=== PATIENT | female | born 1985 | race African-American/Black ===

== ENCOUNTER 2016-07-25 22:31 | Emergency (ER) | payer OTHER ==
[~2016-07-25] VITALS: Ht 170.2 cm; Wt 96.2 kg
[~2016-07-25 22:31] MED LIST: ATOR20TA PO; DAPA10TA PO; METF500T25 PO; OXYC-244 PO
[2016-07-25 22:55] LABS: BILIRUBIN,URINE NEGATIVE (NEG); GLUCOSE,URINE >=1000 mg/dL (NEG); NITRITE,URINE NEGATIVE (NEG); PROTEIN,URINE >=300 mg/dL (NEG-TRACE)
[2016-07-25] MEDS ORDERED: ACETAMINOPHEN 500 MG TABLET PO ONE (23:00)
--- NOTE | 2016-07-25 23:06 | PHYS DOC ---
Past Medical History Past Medical History: Anxiety, Depression, Diabetes-Type II Past Surgical History: Other Additional Past Surgical Histo: [place] teeth; . Alcohol Use: None Drug Use: None Adult General Chief Complaint Chief Complaint: ABDOMINAL PAIN IN HPI HPI This is a pleasant 30-year-old female who is 3 at approximately 9 weeks by her last menstrual period who is having persisting right upper quadrant pain for the last 4 days. She denies any significant nausea or vomiting. She states she ate Chipotle earlier today without any problem. She does not appear to be in any acute distress. She is afebrile and nontoxic in appearance. Her only abdominal surgery has been a as well as a right groin abscess from that . Her pain does not feel related whatsoever to her previous groin abscess. She states her bowel movement have been normal. She denies any dysuria or hematuria. She has not taken anything for her symptoms. She denies any vaginal bleeding. Her first was a miscarriage in the first trimester and her second was a full-term delivery. She denies any drugs or alcohol use. Patient does have history of diabetes and is on metformin therapy for this. Review of Systems Review of Systems Constitutional: Denies fever or chills [] Eyes: Denies change in visual acuity, redness, or eye pain [] HENT: Denies nasal congestion or sore throat [] Respiratory: Denies cough or shortness of breath [] Cardiovascular: No additional information not addressed in HPI [] GI: Has abdominal pain, denies nausea, denies vomiting, denies bloody stools or diarrhea [] : Denies dysuria or hematuria [] Musculoskeletal: Denies back pain or joint pain [] Integument: Denies rash or skin lesions [] Neurologic: Denies headache, focal weakness or sensory changes [] Endocrine: Denies polyuria or polydipsia [] Current Medications Current Medications Current Medications Medications (Trade) Dose Ordered Sig/Riddhi Start Time Stop Time Status Last Admin Dose Admin Acetaminophen (Tylenol) 1,000 mg 1X ONCE 07/25/16 23:00 07/25/16 23:01 DC 07/25/16 23:15 1,000 MG Allergies Allergies Allergies Coded Allergies Type Severity Reaction Last Updated Verified No Known Drug Allergies 05/09/15 No Physical Exam Physical Exam Constitutional: Well developed, well nourished, no acute distress, non-toxic appearance. [] HENT: Normocephalic, atraumatic, bilateral external ears normal, oropharynx moist, no oral exudates, nose normal. [] Eyes: PERRLA, EOMI, conjunctiva normal, no discharge. [] Neck: Normal range of motion, no tenderness, supple, no stridor. [] Cardiovascular:Heart rate regular rhythm, no murmur [] Lungs & Thorax: Bilateral breath sounds clear to auscultation [] Abdomen: Bowel sounds normal, soft, RUQ tenderness, no masses, no pulsatile masses. [] Skin: Warm, dry, no erythema, no rash. [] Back: No tenderness, no CVA tenderness. [] Extremities: No tenderness, no cyanosis, no clubbing, ROM intact, no edema. [] Neurologic: Alert and oriented X 3, normal motor function, normal sensory function, no focal deficits noted. [] Psychologic: Affect normal, judgement normal, mood normal. [] Current Patient Data Vital Signs Vital Signs Date Time Temp Pulse Resp B/P (MAP) Pulse Ox O2 Delivery O2 Flow Rate FiO2 07/25/16 22:49 98.2 88 16 163/85 (111) 100 Room Air 98.2 Lab Values Laboratory Tests Test 07/25/16 21:52 07/25/16 22:42 07/25/16 23:05 POC Urine HCG, Qualitative Hcg positive (Negative) Urine Collection Type Unknown Urine Color Yellow Urine Clarity Cloudy Urine pH 6.0 Urine Specific [place] 1.025 Urine Protein >=300 mg/dL (NEG-TRACE) Urine Glucose (UA) >=1000 mg/dL (NEG) Urine Ketones (Stick) Negative mg/dL (NEG) Urine Blood Small (NEG) Urine Nitrite Negative (NEG) Urine Bilirubin Negative (NEG) Urine Urobilinogen Dipstick 1.0 mg/dL (0.2 mg/dL) Urine Leukocyte Esterase Small (NEG) Urine RBC 0 /HPF (0-2) Urine WBC 20-40 /HPF (0-4) Urine Squamous Epithelial Cells Mod /LPF Urine Bacteria Moderate /HPF (0-FEW) Urine Mucus /LPF White Blood Count 12.4 x10^3/uL (4.0-11.0) H Red Blood Count 4.02 x10^6/uL (3.50-5.40) Hemoglobin 10.9 g/dL (12.0-15.5) L Hematocrit 34.1 % (36.0-47.0) L Mean Corpuscular Volume 85 fL (79-100) Mean Corpuscular Hemoglobin 27 pg (25-35) Mean Corpuscular Hemoglobin Concent 32 g/dL (31-37) Red Cell Distribution Width 13.7 % (11.5-14.5) Platelet Count 230 x10^3/uL (140-400) Neutrophils (%) (Auto) 73 % (31-73) Lymphocytes (%) (Auto) 16 % (24-48) L Monocytes (%) (Auto) 7 % (0-9) Eosinophils (%) (Auto) 3 % (0-3) Basophils (%) (Auto) 1 % (0-3) Neutrophils # (Auto) 9.1 x10^3uL (1.8-7.7) H Lymphocytes # (Auto) 1.9 x10^3/uL (1.0-4.8) Monocytes # (Auto) 0.9 x10^3/uL (0.0-1.1) Eosinophils # (Auto) 0.4 x10^3/uL (0.0-0.7) Basophils # (Auto) 0.1 x10^3/uL (0.0-0.2) Maternal Serum HCG Beta Subunit 41134 mIU/mL (0-6) H Sodium Level 135 mmol/L (136-145) L Potassium Level 3.8 mmol/L (3.5-5.1) Chloride Level 102 mmol/L (98-107) Carbon Dioxide Level 26 mmol/L (21-32) Anion Gap 7 (6-14) Blood Urea Nitrogen 17 mg/dL (7-20) Creatinine 1.3 mg/dL (0.6-1.0) H Estimated GFR (Cockcroft-Gault) 57.8 Glucose Level 311 mg/dL (70-99) H Calcium Level 8.5 mg/dL (8.5-10.1) Total Bilirubin 0.6 mg/dL (0.2-1.0) Direct Bilirubin 0.2 mg/dL (0.0-0.2) Aspartate Amino Transferase (AST) 10 U/L (15-37) L Alanine Aminotransferase (ALT) 12 U/L (14-59) L Alkaline Phosphatase 73 U/L (46-116) Total Protein 6.5 g/dL (6.4-8.2) Albumin 2.7 g/dL (3.4-5.0) L Lipase 201 U/L (73-393) Laboratory Tests 07/25/16 23:05 Laboratory Tests 07/25/16 23:05 EKG EKG [] Radiology/Procedures Radiology/Procedures PROCEDURE Obstetric ultrasound 1st trimester HISTORY female abdominal pain TECHNIQUE Transabdominal and transvaginal transducers with grayscale, M-mode Doppler and duplex Doppler sonography. COMPARISON No prior FINDINGS Transabdominal imaging demonstrates poor visualization of the uterus and adnexa. Transvaginal imaging demonstrates subcentimeter cervical nabothian cysts, no funneling or shortening of the cervix evident while no measurement was provided by the electrical project engineer of the cervical length it appears to have a length of at least 3.8 centimeters. Uterine fundal gestational with a single fetus with crown-rump length 1.93 centimeters estimating gestational age of 8 weeks 3 days date of delivery of March 03, 2017. heart rate 169 beats per minute. No subchorionic hemorrhage. Yolk sac diameter 3.4 millimeters. Right ovary measures 2.4 x 3.3 x 2.4 centimeters with a 2.2 centimeter corpus luteum. Left ovary measures 1.2 x 2.0 x 1.4 centimeters with 2 sub centimeter follicles. There is intact bilateral ovarian blood flow. No pelvic fluid. IMPRESSION Single living intrauterine estimated sonographic gestational age of 8 weeks 3 days as described above. Electronically signed by: Dago Paul MD (July 26, 2016 00:36:41) HISTORY Right upper quadrant abdominal pain TECHNIQUE Grayscale and color Doppler sonography were utilized COMPARISON No prior FINDINGS Pancreas head and body and proximal tail, proximal IVC and proximal abdominal aorta are unremarkable. Normal liver echogenicity. No liver mass documented. Normal direction of blood flow of the portal vein. No gallstones, gallbladder wall thickening, pericholecystic fluid or sonographic Monahan sign. No biliary ductal dilation the common bile duct has a diameter of 4 millimeters. Right renal length 12.6 centimeters, no evidence of right renal mass or hydronephrosis, the right renal lower pole is poorly visualized due to shadowing. Spleen and left kidney were not evaluated. IMPRESSION Course & Med Decision Making Course & Med Decision Making Pertinent Labs and Imaging studies reviewed. (See chart for details) This 30-year-old female who's having significant right-sided abdominal pain and will have laboratory workup and a urinalysis as well as a gallbladder ultrasound and a transvaginal ultrasound for her . At this time her laboratory workup is fairly unremarkable. Her urine sample appears to be contaminated and she is having no dysuria type symptoms. She has a slightly elevated white count which can be seen in early . Her symptoms have persisted for 4 days and I deem her to be low likelihood for appendicitis. Her ultrasound images are pending at this time. A dose of Tylenol has been given for her pain. Ultrasound images were negative for any acute abnormality. She has a viable IUP at approximately 8 weeks 3 days. She'll be discharged home with close follow-up with her OB doctor for any persisting pain or worsening symptoms. Return precautions within the next 24 hours were provided for her pain if it should worsen. She is very agreeable with this plan and will be discharged without incident. Dragon Disclaimer Dragon Disclaimer This electronic medical record was generated, in whole or in part, using a voice recognition dictation system. Departure Departure Impression: Primary Impression: Abdominal pain affecting Disposition: 01 HOME, SELF-CARE Admitting Physician: Other Condition: STABLE Referrals: [facility] (PCP) Patient Instructions: Abdominal Pain During Additional Instructions: Please take tylenol as needed for your abdominal pain and follow up closely with your OB doctor in the next 2-3 days for your abdominal pain. Return to the ER immediately if your pain should worsen in any way or you develop any severe nausea, vomiting, or fever. TAN ABEL DO July 25, 2016 23:06
[2016-07-25 23:14] LABS: RBC,URINE 0 /HPF (0-2)
[2016-07-25 23:15] LABS: BASO # 0.1 x10^3/uL (0.0-0.2); BASO % 1 % (0-3); EOS % 3 % (0-3); HEMATOCRIT 34.1 % (36.0-47.0); HEMOGLOBIN 10.9 g/dL (12.0-15.5); LYMPH # 1.9 x10^3/uL (1.0-4.8); LYMPH % 16 % (24-48); MEAN CORPUSCULAR HEMOGLOBIN 27 pg (25-35); MEAN CORPUSCULAR HGB CONC 32 g/dL (31-37); MEAN CORPUSCULAR VOLUME 85 fL (79-100); MONO % 7 % (0-9); NEUT % 73 % (31-73); PLATELET COUNT 230 x10^3/uL (140-400); RED BLOOD COUNT 4.02 x10^6/uL (3.50-5.40); RED CELL DISTRIBUTION WIDTH 13.7 % (11.5-14.5); WHITE BLOOD COUNT 12.4 x10^3/uL (4.0-11.0)
[2016-07-25 23:16] LABS: BACTERIA,URINE MODERATE /HPF (0-FEW); SQUAMOUS EPITHELIAL CELL,UR MOD /LPF; WBC,URINE 20-40 /HPF (0-4)
[2016-07-25 23:29] LABS: CALCIUM 8.5 mg/dL (8.5-10.1); CREATININE 1.3 mg/dL (0.6-1.0); GFR 57.8; POTASSIUM 3.8 mmol/L (3.5-5.1)
[2016-07-26 00:12] LABS: ALBUMIN 2.7 g/dL (3.4-5.0); DIRECT BILIRUBIN 0.2 mg/dL (0.0-0.2); TOTAL BILIRUBIN 0.6 mg/dL (0.2-1.0); TOTAL PROTEIN 6.5 g/dL (6.4-8.2)
--- NOTE | 2016-07-26 00:38 | RAD ---
PROCEDURE Obstetric ultrasound 1st trimester HISTORY female abdominal pain TECHNIQUE Transabdominal and transvaginal transducers with grayscale, M-mode Doppler and duplex Doppler sonography. COMPARISON No prior FINDINGS Transabdominal imaging demonstrates poor visualization of the uterus and adnexa. Transvaginal imaging demonstrates subcentimeter cervical nabothian cysts, no funneling or shortening of the cervix evident while no measurement was provided by the autocad of the cervical length it appears to have a length of at least 3.8 centimeters. Uterine fundal gestational with a single fetus with crown-rump length 1.93 centimeters estimating gestational age of 8 weeks 3 days date of delivery of March 03, 2017. heart rate 169 beats per minute. No subchorionic hemorrhage. Yolk sac diameter 3.4 millimeters. Right ovary measures 2.4 x 3.3 x 2.4 centimeters with a 2.2 centimeter corpus luteum. Left ovary measures 1.2 x 2.0 x 1.4 centimeters with 2 sub centimeter follicles. There is intact bilateral ovarian blood flow. No pelvic fluid. IMPRESSION Single living intrauterine estimated sonographic gestational age of 8 weeks 3 days as described above. Electronically signed by: Dago Paul MD (July 26, 2016 00:36:41)
--- NOTE | 2016-07-26 00:39 | RAD ---
PROCEDURE Limited abdomen ultrasound HISTORY Right upper quadrant abdominal pain TECHNIQUE Grayscale and color Doppler sonography were utilized COMPARISON No prior FINDINGS Pancreas head and body and proximal tail, proximal IVC and proximal abdominal aorta are unremarkable. Normal liver echogenicity. No liver mass documented. Normal direction of blood flow of the portal vein. No gallstones, gallbladder wall thickening, pericholecystic fluid or sonographic Monahan sign. No biliary ductal dilation the common bile duct has a diameter of 4 millimeters. Right renal length 12.6 centimeters, no evidence of right renal mass or hydronephrosis, the right renal lower pole is poorly visualized due to shadowing. Spleen and left kidney were not evaluated. IMPRESSION Normal exam. Electronically signed by: Dago Paul MD (July 26, 2016 00:38:13)
[2016-07-26 00:45] VITALS: BP 152/83
== END 2016-07-26 01:00 | disposition home or self-care (01) ==
LOC: ER 23:09
DX: O26.891 Other specified pregnancy related conditions, first trimester (principal); R10.11 Right upper quadrant pain; O99.341 Other mental disorders complicating pregnancy, first trimester; F41.9 Anxiety disorder, unspecified; F32.9 Major depressive disorder, single episode, unspecified; O24.911 Unspecified diabetes mellitus in pregnancy, first trimester; Z3A.08 8 weeks gestation of pregnancy; Z98.890 Other specified postprocedural states
CPT/HCPCS: 36415; 76705; 76817; 80048; 80076; 81001; 81025; 83690; 84702; 85027; 86900; 86901; 87086; 99285-25

== ENCOUNTER 2016-10-26 14:18 | Inpatient (IN) | payer OTHER ==
[~2016-10-26] VITALS: Ht 170.2 cm; Wt 105.9 kg
[~2016-10-26 14:18] MED LIST changes: -OXYC-244 PO; +OXYC-327 PO
[2016-10-26] MEDS ORDERED: IPRATRPIUM/ALBUTEROL 0.5/2.5MG 3 ML NEBU. NEB ONE (15:30)
--- NOTE | 2016-10-26 16:10 | PHYS DOC ---
Past Medical History Past Medical History: Anxiety, Asthma, Bronchitis, Depression, Diabetes-Type II , Hypertension, MRSA Past Surgical History: , Other Additional Past Surgical Histo: [place] teeth,LABIAL ABSCESS,MULTIPLE ABSCESSES Alcohol Use: None Drug Use: None Adult General Chief Complaint Chief Complaint: SHORTNESS OF BREATH HPI HPI Patient is a 31 year old -[place] female who presents with shortness of breath nausea vomiting and diarrhea. She states that 1:30 this morning her shortness of breath started and if she lay on her left side she did feel better. She states she's been coughing up clear thick sputum. She states both legs are swollen because of her . She does have a remote history of smoking but has stopped smoking again. She states she is approximately 22 weeks . She denies ever having a blood clot or PE in the past. She does have a history of high blood pressure and diabetes. Patient presently satting 88% on 2 L nasal cannula. She states she's had a history of bronchitis in the past. She states she's been having 4-8 episodes of nonbloody nonbilious vomiting in addition to numerous episodes of non-bloody loose stools. She denies any chest pain, abdominal pain, fevers or chills. Review of Systems Review of Systems Constitutional: Denies fever or chills [] Eyes: Denies change in visual acuity, redness, or eye pain [] HENT: Denies nasal congestion or sore throat [] Respiratory: Denies cough or shortness of breath [] Cardiovascular: No additional information not addressed in HPI [] GI: Denies abdominal pain, nausea, vomiting, bloody stools or diarrhea [] : Denies dysuria or hematuria [] Musculoskeletal: Denies back pain or joint pain [] Integument: Denies rash or skin lesions [] Neurologic: Denies headache, focal weakness or sensory changes [] Endocrine: Denies polyuria or polydipsia [] Current Medications Current Medications Current Medications Medications (Trade) Dose Ordered Sig/Riddhi Start Time Stop Time Status Last Admin Dose Admin Albuterol Sulfate (Ventolin Neb Soln) 2.5 mg 1X ONCE 10/26/16 16:30 10/26/16 16:31 DC 10/26/16 17:01 2.5 MG Albuterol/ Ipratropium (Duoneb) 3 ml 1X ONCE 10/26/16 15:30 10/26/16 15:31 DC 10/26/16 15:28 3 ML Azithromycin 250 ml @ 250 mls/hr 1X ONCE 10/26/16 18:00 10/26/16 18:59 Ceftriaxone Sodium 1 gm/ Sodium Chloride 50 ml @ 100 mls/hr Q24H 10/27/16 18:00 Ceftriaxone Sodium 50 ml @ 100 mls/hr 1X ONCE 10/26/16 18:15 10/26/16 18:44 DC 10/26/16 18:20 100 MLS/HR Allergies Allergies Allergies Coded Allergies Type Severity Reaction Last Updated Verified No Known Drug Allergies 05/09/15 No Physical Exam Physical Exam Constitutional: Well developed, well nourished, no acute distress, non-toxic appearance. [] HENT: Normocephalic, atraumatic, bilateral external ears normal, oropharynx moist, no oral exudates, nose normal. [] Eyes: PERRLA, EOMI, conjunctiva normal, no discharge. [] Neck: Normal range of motion, no tenderness, supple, no stridor. [] Cardiovascular:Heart rate regular rhythm, no murmur [] Lungs & Thorax: Bilateral breath sounds clear with decreased bases, no wheezing appreciated Abdomen: Bowel sounds normal, soft, no tenderness, no masses, no pulsatile masses. [] Skin: Warm, dry, no erythema, no rash. [] Back: No tenderness, no CVA tenderness. [] Extremities: No tenderness, no cyanosis, no clubbing, ROM intact, trace bilateral lower extremities edema Neurologic: Alert and oriented X 3, normal motor function, normal sensory function, no focal deficits noted. [] Psychologic: Affect normal, judgement normal, mood normal. [] Current Patient Data Vital Signs Vital Signs Date Time Temp Pulse Resp B/P (MAP) Pulse Ox O2 Delivery O2 Flow Rate FiO2 10/26/16 14:50 98.2 94 26 201/93 (129) 86 Room Air 98.2 Lab Values Laboratory Tests Test 10/26/16 16:00 White Blood Count 19.9 x10^3/uL (4.0-11.0) H Red Blood Count 3.70 x10^6/uL (3.50-5.40) Hemoglobin 10.3 g/dL (12.0-15.5) L Hematocrit 30.6 % (36.0-47.0) L Mean Corpuscular Volume 83 fL (79-100) Mean Corpuscular Hemoglobin 28 pg (25-35) Mean Corpuscular Hemoglobin Concent 34 g/dL (31-37) Red Cell Distribution Width 14.2 % (11.5-14.5) Platelet Count 255 x10^3/uL (140-400) Neutrophils (%) (Auto) 90 % (31-73) H Lymphocytes (%) (Auto) 6 % (24-48) L Monocytes (%) (Auto) 3 % (0-9) Eosinophils (%) (Auto) 1 % (0-3) Basophils (%) (Auto) 0 % (0-3) Neutrophils # (Auto) 17.9 x10^3uL (1.8-7.7) H Lymphocytes # (Auto) 1.1 x10^3/uL (1.0-4.8) Monocytes # (Auto) 0.7 x10^3/uL (0.0-1.1) Eosinophils # (Auto) 0.1 x10^3/uL (0.0-0.7) Basophils # (Auto) 0.1 x10^3/uL (0.0-0.2) Segmented Neutrophils % 76 % (35-66) H Band Neutrophils % 13 % (0-9) H Lymphocytes % 8 % (24-48) L Monocytes % 2 % (0-10) Metamyelocytes % 1 % (0-0) H Toxic Granulation Slight Platelet Estimate Adequate (ADEQUATE) Prothrombin Time 12.6 SEC (11.7-14.0) Prothrombin Time INR 1.0 (0.8-1.1) Urine Collection Type Void Urine Color Yellow Urine Clarity Clear Urine pH 6.0 Urine Specific [place] 1.025 Urine Protein >=300 mg/dL (NEG-TRACE) Urine Glucose (UA) 250 mg/dL (NEG) Urine Ketones (Stick) Trace mg/dL (NEG) Urine Blood Moderate (NEG) Urine Nitrite Negative (NEG) Urine Bilirubin Negative (NEG) Urine Urobilinogen Dipstick 1.0 mg/dL (0.2 mg/dL) Urine Leukocyte Esterase Trace (NEG) Urine RBC 1-2 /HPF (0-2) Urine WBC 5-10 /HPF (0-4) Urine Squamous Epithelial Cells Few /LPF Urine Bacteria Many /HPF (0-FEW) Urine Mucus Slight /LPF Sodium Level 137 mmol/L (136-145) Potassium Level 3.9 mmol/L (3.5-5.1) Chloride Level 103 mmol/L (98-107) Carbon Dioxide Level 22 mmol/L (21-32) Anion Gap 12 (6-14) Blood Urea Nitrogen 14 mg/dL (7-20) Creatinine 1.1 mg/dL (0.6-1.0) H Estimated GFR (Cockcroft-Gault) 69.6 Glucose Level 181 mg/dL (70-99) H Calcium Level 9.2 mg/dL (8.5-10.1) Magnesium Level 2.1 mg/dL (1.8-2.4) Total Bilirubin 0.5 mg/dL (0.2-1.0) Direct Bilirubin 0.1 mg/dL (0.0-0.2) Aspartate Amino Transferase (AST) 16 U/L (15-37) Alanine Aminotransferase (ALT) 17 U/L (14-59) Alkaline Phosphatase 95 U/L (46-116) Creatine Kinase 207 U/L (26-192) H Creatine Kinase MB (Mass) 6.8 ng/mL (0.0-3.6) H Creatine Kinase MB Relative Index 3.3 % (0-4) Troponin I Quantitative 0.085 ng/mL (0.000-0.055) SR-Ino-Z-Type Natriuretic Peptide 1673 pg/mL (0-124) H Total Protein 7.9 g/dL (6.4-8.2) Albumin 2.7 g/dL (3.4-5.0) L Urine Opiates Screen Neg (NEG) Urine Methadone Screen Neg (NEG) Urine Barbiturates Neg (NEG) Urine Phencyclidine Screen Neg (NEG) Urine Amphetamine/Methamphetamine Neg (NEG) Urine Benzodiazepines Screen Neg (NEG) Urine Cocaine Screen Neg (NEG) Urine Cannabinoids Screen Neg (NEG) Urine Ethyl Alcohol Neg (NEG) Laboratory Tests 10/26/16 16:00 Laboratory Tests 10/26/16 16:00 EKG EKG EKG shows sinus rhythm rate of [address] elevations or T-wave inversions, normal axis, QTC 434 ms, as interpreted by me. Radiology/Procedures Radiology/Procedures [facility] [address] [phone] IMAGING REPORT Signed PATIENT: GURPREET UMANA ACCOUNT: [id number] : 1985 LOCATION: ER AGE: 31 SEX: F EXAM STATUS: REG ER ORD. PHYSICIAN: JANNA MENDIOLA MD REASON: swelling PROCEDURE: VENOUS LOWER EXT BILATERAL Ultrasound venous Doppler Indication: Shortness of breath and swelling. Technique: Grayscale, color Doppler and spectral waveform ultrasound images of the bilateral lower extremities. Comparison: None Findings: The interrogated lower extremity veins are compressible and demonstrate normal blood flow with respiratory variation and response to augmentation. Impression: No sonographic evidence of acute DVT in the interrogated bilateral lower extremities veins. DICTATED and SIGNED BY: ALPHONSO MORRIS DO DATE: 10/26/16 1652 CC: JANNA MENDIOLA MD; [place] [address] IMAGING REPORT Signed PATIENT: GURPREET UMANA ACCOUNT: [id number] : 1985 LOCATION: ER AGE: 31 SEX: F EXAM STATUS: REG ER ORD. PHYSICIAN: JANNA MENDIOLA MD REASON: soa PROCEDURE: CHEST PA & LATERAL Chest x-ray Indication: Dyspnea Technique: PA and lateral views of the chest Comparison: None Findings: Heart is normal in size. Diffuse patchy opacities are seen in the right lung. 5 mm calcific density seen projecting over the right lower lung zone likely calcified granuloma. Left lung is clear. No pneumothorax or pleural effusion. Visualized bony thorax within normal limits. Impression: 1. Diffuse patchy opacities within the right lung concerning for infection. Clinically correlate. CT chest with IV contrast recommended for further evaluation if clinically indicated. 2. Small density projecting over the right lower lung zone likely calcified granuloma. DICTATED and SIGNED BY: ALPHONSO MORRIS DO DATE: 10/26/16 1450 CC: JANNA MENDIOLA MD; [facility] Impressions: Pneumonia Nausea vomiting diarrhea Elevated troponin Course & Med Decision Making Course & Med Decision Making Pertinent Labs and Imaging studies reviewed. (See chart for details) Patient has a right patchy infiltrate in her lung which is likely mycoplasma pneumonia based on her history of nausea vomiting and diarrhea. Bilateral lower extremity ultrasounds are negative for blood clot. She does not have a fever but she has a leukocytosis with bandemia. She has a slightly elevated troponin is likely secondary to her hypoxemia she is on 2 L satting around 90-92%. I spoke with OB regarding the case and will admit her to hospitalist. I start Rocephin and azithromycin for her symptoms. They both have the categories. She is agreeable to plan and is in stable condition this time. Will defer to the hospitalist if she feels is necessary for a CT angiogram to rule out PE. Dragon Disclaimer Dragon Disclaimer This electronic medical record was generated, in whole or in part, using a voice recognition dictation system. Departure Departure Impression: Primary Impression: Pneumonia Disposition: 09 ADMITTED INPATIENT Admitting Physician: Adri Oswald Condition: STABLE Referrals: [facility] (PCP) Problem Qualifiers Primary Impression: Pneumonia Pneumonia type: due to unspecified organism Laterality: right Lung location : lower lobe of lung Qualified Codes: J18.1 - Lobar pneumonia, unspecified organism JANNA MENDIOLA MD Oct 26, 2016 16:10
[2016-10-26] MEDS ORDERED: ALBUTEROL SULFATE 2.5 MG/3 ML NEBU. NEB ONE (16:30)
[2016-10-26 16:31] LABS: BASO # 0.1 x10^3/uL (0.0-0.2); BASO % 0 % (0-3); EOS % 1 % (0-3); HEMATOCRIT 30.6 % (36.0-47.0); HEMOGLOBIN 10.3 g/dL (12.0-15.5); LYMPH # 1.1 x10^3/uL (1.0-4.8); LYMPH % 6 % (24-48); MEAN CORPUSCULAR HEMOGLOBIN 28 pg (25-35); MEAN CORPUSCULAR HGB CONC 34 g/dL (31-37); MEAN CORPUSCULAR VOLUME 83 fL (79-100); MONO % 3 % (0-9); NEUT % 90 % (31-73); PLATELET COUNT 255 x10^3/uL (140-400); RED CELL DISTRIBUTION WIDTH 14.2 % (11.5-14.5); WHITE BLOOD COUNT 19.9 x10^3/uL (4.0-11.0)
[2016-10-26 16:42] LABS: PROTHROMBIN TIME PATIENT 12.6 SEC (11.7-14.0)
[2016-10-26 16:49] LABS: CALCIUM 9.2 mg/dL (8.5-10.1); CREATININE 1.1 mg/dL (0.6-1.0); GFR 69.6; POTASSIUM 3.9 mmol/L (3.5-5.1)
[2016-10-26 16:56] LABS: ALBUMIN 2.7 g/dL (3.4-5.0); BILIRUBIN,URINE NEGATIVE (NEG); DIRECT BILIRUBIN 0.1 mg/dL (0.0-0.2); GLUCOSE,URINE 250 mg/dL (NEG); MAGNESIUM 2.1 mg/dL (1.8-2.4); NITRITE,URINE NEGATIVE (NEG); PROTEIN,URINE >=300 mg/dL (NEG-TRACE); TOTAL BILIRUBIN 0.5 mg/dL (0.2-1.0); TOTAL PROTEIN 7.9 g/dL (6.4-8.2)
--- NOTE | 2016-10-26 16:56 | RAD ---
Ultrasound venous Doppler Indication: Shortness of breath and swelling. Technique: Grayscale, color Doppler and spectral waveform ultrasound images of the bilateral lower extremities. Comparison: None Findings: The interrogated lower extremity veins are compressible and demonstrate normal blood flow with respiratory variation and response to augmentation. Impression: No sonographic evidence of acute DVT in the interrogated bilateral lower extremities veins.
[2016-10-26 17:03] LABS: CKMB MASS 6.8 ng/mL (0.0-3.6)
[2016-10-26 17:04] LABS: BARBITURATES NEG (NEG); BENZODIAZEPINES NEG (NEG); CANNABINOIDS NEG (NEG); COCAINE NEG (NEG); METHADONE NEG (NEG); OPIATES NEG (NEG); PHENCYCLIDINE NEG (NEG)
[2016-10-26 17:24] LABS: BACTERIA,URINE MANY /HPF (0-FEW); SQUAMOUS EPITHELIAL CELL,UR FEW /LPF
--- NOTE | 2016-10-26 17:44 | RAD ---
Chest x-ray Indication: Dyspnea Technique: PA and lateral views of the chest Comparison: None Findings: Heart is normal in size. Diffuse patchy opacities are seen in the right lung. 5 mm calcific density seen projecting over the right lower lung zone likely calcified granuloma. Left lung is clear. No pneumothorax or pleural effusion. Visualized bony thorax within normal limits. Impression: 1. Diffuse patchy opacities within the right lung concerning for infection. Clinically correlate. CT chest with IV contrast recommended for further evaluation if clinically indicated. 2. Small density projecting over the right lower lung zone likely calcified granuloma.
[2016-10-26 17:57] LABS: PLT ESTIMATE ADEQUATE (ADEQUATE); TOXIC GRANULATION SLIGHT
[2016-10-26] MEDS ORDERED: AZITHRMYCN 500MG IVPB FOR OMNI 250 ML IV ONE (18:00)
[2016-10-26] MEDS ORDERED: ONDANSETRON PF 4 MG/2 ML VIAL. IV PRN (19:00)
[2016-10-26] MEDS: ONDANSETRON PF 4 MG/2 ML VIAL. IV PRN (19:42)
[2016-10-26] MEDS ORDERED: oxyCODONE/APAP 7.5/325 1 TAB TABLET PO PRN (19:45)
[2016-10-26] MEDS ORDERED: guaiFENesin DM 200MG/20MG 10 ML SYRUP PO PRN (19:45)
[2016-10-26] MEDS ORDERED: IV 1/2 NORMAL SALINE 1,000 ML IV ONE (19:45)
[2016-10-26] MEDS ORDERED: LABETALOL 20 MG/4 ML DISP.SYRIN. IVP PRN (19:45)
[2016-10-26] MEDS ORDERED: DEXTROSE 50% 25 GM / 50ML DISP.SYRIN. IV PRN (19:45)
[2016-10-26] MEDS ORDERED: LOPERAMIDE 2 MG CAPSULE PO PRN (19:45)
--- NOTE | 2016-10-26 19:51 | PDOC1 ---
History and Physical Date of Admission Date of Admission DATE: 10/26/16 TIME: 19:39 Identification/Chief Complaint Chief Complaint cough, thick phlegm Problems: Source Source: Caregiver, Chart review, Patient History of Present Illness History of Present Illness 31 y.o AA female, (1-0-01-), currently 22 weeks AOG with care at [facility], comes in bec of today's onset SOA, cough thick phlegm, no fevers, diarrhea for few days now, maybe even a week. CXR shows patchy infiltrate R side , WBC 19, hypoxic on arrival. D dimer not taken as not reliable in but Dopplers are neg for DVT, VQ not done as higher radiation dose than CT, We opted to treat the pNA, monitor the hypoxia, if anytime persistent hypoxia then CTA might be the next step, (Dw ER MD Dr Restrepo). Seen at ER, non toxic appearing , willing to go home soon, actually, Started on category B abx for , OB gyne also consulted, was concerned about the anemia hgb 7, normocytic - not unusual in ? will cont her prenatals and abx with pulmo on board. Of note, hx HTN and DM on OHA even prior to , and both are running high , SBP 220s, no sxs, BS high, last hgba1c 10 as per her acct CXR I have personally reviewed: Impression: 1. Diffuse patchy opacities within the right lung concerning for infection. Clinically correlate. CT chest with IV contrast recommended for further evaluation if clinically indicated. 2. Small density projecting over the right lower lung zone likely calcified granuloma. Past Medical History Cardiovascular: HTN Endocrine: Diabetes Past Surgical History Past Surgical History: Other (obstetrical deliveries, 1 miscarriage) Family History Family History: Hypertension Social History Smoke: Quit ALCOHOL: occassional Drugs: None Current Problem List Problem List Problems Medical Problems: (1) Pneumonia Status: Acute Problems: Current Medications Current Medications Current Medications Albuterol/ Ipratropium (Duoneb) 3 ml 1X ONCE NEB Last administered on 15:28; Start 10/26/16 at 15:30; Stop 10/26/16 at 15:31; Status DC Albuterol Sulfate (Ventolin Neb Soln) 2.5 mg 1X ONCE NEB Last administered on 10/26/16 17:01; Start 10/26/16 at 16:30; Stop 10/26/16 at 16:31; Status DC Ceftriaxone Sodium 50 ml @ 100 mls/hr 1X ONCE IV Last administered on t 18:20; Start 10/26/16 at 18:15; Stop 10/26/16 at 18:44; Status DC Azithromycin 250 ml @ 250 mls/hr 1X ONCE IV Last administered on 10/26/16t 18 :56; Start 10/26/16 at 18:00; Stop 10/26/16 at 18:59; Status DC Ceftriaxone Sodium 1 gm/ Sodium Chloride 50 ml @ 100 mls/hr Q24H IV ; Start at 18:00 Ondansetron HCl (Zofran) 4 mg PRN Q8HRS PRN IV NAUSEA/VOMITING; Start 10/26/16 at 19:00; Stop 10/26/16 at 19:37; Status DC Ondansetron HCl (Zofran) 4 mg PRN Q6HRS PRN IV NAUSEA/VOMITING; Start 10/26/16 at 19:33; Stop 10/27/16 at 19:32; Status UNV Albuterol/ Ipratropium (Duoneb) 3 ml QID NEB ; Start 10/26/16 at 21:00; Status UNV Guaifenesin (Robitussin Dm) 10 ml PRN Q6HRS PRN PO COUGH; Start 10/26/16 at 19: 45; Status UNV Azithromycin (Zithromax) 500 mg DAILY PO ; Start 10/27/16 at 09:00; Status UNV Sodium Chloride 1,000 ml @ 100 mls/hr 1X ONCE IV ; Start 10/26/16 at 19:45; Stop 10/27/16 at 05:44; Status UNV Loperamide HCl (Imodium) 2 mg PRN Q15MIN PRN PO DIARRHEA; Start 10/26/16 at 19: 45; Status UNV Oxycodone/ Acetaminophen (Percocet 7.5/ 325) 1 tab Q4HRS PRN PO PAIN; Start at 19:45; Status UNV Non-Formulary Medication 10 mg DAILY PO ; Start 10/27/16 at 09:00; Status UNV Metformin HCl (Glucophage Xr) 500 mg DAILYWBKFT PO ; Start 10/27/16 at 08:00; Status UNV Active Scripts Active Reported Percocet 7.5-325 Mg Tablet (Oxycodone/Acetaminophen) 1 Each Tablet 1 Tab PO Q4HRS PRN Farxiga (Dapagliflozin Propanediol) 10 Mg Tablet 10 Mg PO DAILY Lipitor (Atorvastatin Calcium) 20 Mg Tablet 20 Mg PO Metformin Hcl Er (Metformin Hcl) 500 Mg Tab.er.24 500 Mg PO Allergies Allergies: Coded Allergies: No Known Drug Allergies (Unverified , 05/09/15) ROS Review of System as per HPI, cough, soa, diarrhea, abd pain with diarrhea Physical Exam General: Alert, Oriented X3, Cooperative, No acute distress HEENT: Atraumatic, PERRLA Lungs: Normal air movement, Other (dec BS Right side, dullness to percussion R) Heart: S1S2, RRR, no thrills, no rubs Cardiovascular: S1 Breasts: Normal Abdomen: Normal bowel sounds, Soft, No tenderness, No hepatosplenomegaly, No masses, Other (gravid uterus appropriate for 22 weeks AOG) Rectal Exam: not examined PELVIC: Nml ext genitalia Extremities: No clubbing, No cyanosis, No edema, Normal pulses, No tenderness/ swelling Skin: No rashes, No breakdown, No significant lesion Neuro: Normal gait, Normal speech, Strength at 5/5 X4 ext, Normal tone, Sensation intact, Cranial nerves 3-12 NL, Reflexes 2+ Psych/Mental Status: Mental status NL, Mood NL Vitals Vitals Vital Signs Date Time Temp Pulse Resp B/P (MAP) Pulse Ox O2 Delivery O2 Flow Rate FiO2 10/26/16 19:00 104 251/114 (159) 96 Nasal Cannula 2.0 10/26/16 18:30 24 10/26/16 14:50 98.2 98.2 Labs Labs Laboratory Tests Test 10/26/16 16:00 White Blood Count 19.9 x10^3/uL (4.0-11.0) Red Blood Count 3.70 x10^6/uL (3.50-5.40) Hemoglobin 10.3 g/dL (12.0-15.5) Hematocrit 30.6 % (36.0-47.0) Mean Corpuscular Volume 83 fL (79-100) Mean Corpuscular Hemoglobin 28 pg (25-35) Mean Corpuscular Hemoglobin Concent 34 g/dL (31-37) Red Cell Distribution Width 14.2 % (11.5-14.5) Platelet Count 255 x10^3/uL (140-400) Neutrophils (%) (Auto) 90 % (31-73) Lymphocytes (%) (Auto) 6 % (24-48) Monocytes (%) (Auto) 3 % (0-9) Eosinophils (%) (Auto) 1 % (0-3) Basophils (%) (Auto) 0 % (0-3) Neutrophils # (Auto) 17.9 x10^3uL (1.8-7.7) Lymphocytes # (Auto) 1.1 x10^3/uL (1.0-4.8) Monocytes # (Auto) 0.7 x10^3/uL (0.0-1.1) Eosinophils # (Auto) 0.1 x10^3/uL (0.0-0.7) Basophils # (Auto) 0.1 x10^3/uL (0.0-0.2) Segmented Neutrophils % 76 % (35-66) Band Neutrophils % 13 % (0-9) Lymphocytes % 8 % (24-48) Monocytes % 2 % (0-10) Metamyelocytes % 1 % (0-0) Toxic Granulation Slight Platelet Estimate Adequate (ADEQUATE) Prothrombin Time 12.6 SEC (11.7-14.0) Prothromb Time International Ratio 1.0 (0.8-1.1) Urine Collection Type Void Urine Color Yellow Urine Clarity Clear Urine pH 6.0 Urine Specific [place] 1.025 Urine Protein >=300 mg/dL (NEG-TRACE) Urine Glucose (UA) 250 mg/dL (NEG) Urine Ketones (Stick) Trace mg/dL (NEG) Urine Blood Moderate (NEG) Urine Nitrite Negative (NEG) Urine Bilirubin Negative (NEG) Urine Urobilinogen Dipstick 1.0 mg/dL (0.2 mg/dL) Urine Leukocyte Esterase Trace (NEG) Urine RBC 1-2 /HPF (0-2) Urine WBC 5-10 /HPF (0-4) Urine Squamous Epithelial Cells Few /LPF Urine Bacteria Many /HPF (0-FEW) Urine Mucus Slight /LPF Sodium Level 137 mmol/L (136-145) Potassium Level 3.9 mmol/L (3.5-5.1) Chloride Level 103 mmol/L (98-107) Carbon Dioxide Level 22 mmol/L (21-32) Anion Gap 12 (6-14) Blood Urea Nitrogen 14 mg/dL (7-20) Creatinine 1.1 mg/dL (0.6-1.0) Estimated GFR (Cockcroft-Gault) 69.6 Glucose Level 181 mg/dL (70-99) Calcium Level 9.2 mg/dL (8.5-10.1) Magnesium Level 2.1 mg/dL (1.8-2.4) Total Bilirubin 0.5 mg/dL (0.2-1.0) Direct Bilirubin 0.1 mg/dL (0.0-0.2) Aspartate Amino Transf (AST/SGOT) 16 U/L (15-37) Alanine Aminotransferase (ALT/SGPT) 17 U/L (14-59) Alkaline Phosphatase 95 U/L (46-116) Creatine Kinase 207 U/L (26-192) Creatine Kinase MB (Mass) 6.8 ng/mL (0.0-3.6) Creatine Kinase MB Relative Index 3.3 % (0-4) Troponin I Quantitative 0.085 ng/mL (0.000-0.055) AT-Fxv-P-Type Natriuretic Peptide 1673 pg/mL (0-124) Total Protein 7.9 g/dL (6.4-8.2) Albumin 2.7 g/dL (3.4-5.0) Urine Opiates Screen Neg (NEG) Urine Methadone Screen Neg (NEG) Urine Barbiturates Neg (NEG) Urine Phencyclidine Screen Neg (NEG) Urine Amphetamine/Methamphetamine Neg (NEG) Urine Benzodiazepines Screen Neg (NEG) Urine Cocaine Screen Neg (NEG) Urine Cannabinoids Screen Neg (NEG) Urine Ethyl Alcohol Neg (NEG) Laboratory Tests Test 10/26/16 16:00 White Blood Count 19.9 x10^3/uL (4.0-11.0) Red Blood Count 3.70 x10^6/uL (3.50-5.40) Hemoglobin 10.3 g/dL (12.0-15.5) Hematocrit 30.6 % (36.0-47.0) Mean Corpuscular Volume 83 fL (79-100) Mean Corpuscular Hemoglobin 28 pg (25-35) Mean Corpuscular Hemoglobin Concent 34 g/dL (31-37) Red Cell Distribution Width 14.2 % (11.5-14.5) Platelet Count 255 x10^3/uL (140-400) Neutrophils (%) (Auto) 90 % (31-73) Lymphocytes (%) (Auto) 6 % (24-48) Monocytes (%) (Auto) 3 % (0-9) Eosinophils (%) (Auto) 1 % (0-3) Basophils (%) (Auto) 0 % (0-3) Neutrophils # (Auto) 17.9 x10^3uL (1.8-7.7) Lymphocytes # (Auto) 1.1 x10^3/uL (1.0-4.8) Monocytes # (Auto) 0.7 x10^3/uL (0.0-1.1) Eosinophils # (Auto) 0.1 x10^3/uL (0.0-0.7) Basophils # (Auto) 0.1 x10^3/uL (0.0-0.2) Segmented Neutrophils % 76 % (35-66) Band Neutrophils % 13 % (0-9) Lymphocytes % 8 % (24-48) Monocytes % 2 % (0-10) Metamyelocytes % 1 % (0-0) Toxic Granulation Slight Platelet Estimate Adequate (ADEQUATE) Prothrombin Time 12.6 SEC (11.7-14.0) Prothromb Time International Ratio 1.0 (0.8-1.1) Urine Collection Type Void Urine Color Yellow Urine Clarity Clear Urine pH 6.0 Urine Specific [place] 1.025 Urine Protein >=300 mg/dL (NEG-TRACE) Urine Glucose (UA) 250 mg/dL (NEG) Urine Ketones (Stick) Trace mg/dL (NEG) Urine Blood Moderate (NEG) Urine Nitrite Negative (NEG) Urine Bilirubin Negative (NEG) Urine Urobilinogen Dipstick 1.0 mg/dL (0.2 mg/dL) Urine Leukocyte Esterase Trace (NEG) Urine RBC 1-2 /HPF (0-2) Urine WBC 5-10 /HPF (0-4) Urine Squamous Epithelial Cells Few /LPF Urine Bacteria Many /HPF (0-FEW) Urine Mucus Slight /LPF Sodium Level 137 mmol/L (136-145) Potassium Level 3.9 mmol/L (3.5-5.1) Chloride Level 103 mmol/L (98-107) Carbon Dioxide Level 22 mmol/L (21-32) Anion Gap 12 (6-14) Blood Urea Nitrogen 14 mg/dL (7-20) Creatinine 1.1 mg/dL (0.6-1.0) Estimated GFR (Cockcroft-Gault) 69.6 Glucose Level 181 mg/dL (70-99) Calcium Level 9.2 mg/dL (8.5-10.1) Magnesium Level 2.1 mg/dL (1.8-2.4) Total Bilirubin 0.5 mg/dL (0.2-1.0) Direct Bilirubin 0.1 mg/dL (0.0-0.2) Aspartate Amino Transf (AST/SGOT) 16 U/L (15-37) Alanine Aminotransferase (ALT/SGPT) 17 U/L (14-59) Alkaline Phosphatase 95 U/L (46-116) Creatine Kinase 207 U/L (26-192) Creatine Kinase MB (Mass) 6.8 ng/mL (0.0-3.6) Creatine Kinase MB Relative Index 3.3 % (0-4) Troponin I Quantitative 0.085 ng/mL (0.000-0.055) QK-Hrg-G-Type Natriuretic Peptide 1673 pg/mL (0-124) Total Protein 7.9 g/dL (6.4-8.2) Albumin 2.7 g/dL (3.4-5.0) Urine Opiates Screen Neg (NEG) Urine Methadone Screen Neg (NEG) Urine Barbiturates Neg (NEG) Urine Phencyclidine Screen Neg (NEG) Urine Amphetamine/Methamphetamine Neg (NEG) Urine Benzodiazepines Screen Neg (NEG) Urine Cocaine Screen Neg (NEG) Urine Cannabinoids Screen Neg (NEG) Urine Ethyl Alcohol Neg (NEG) VTE Prophylaxis Ordered VTE Prophylaxis Devices: Yes VTE Pharmacological Prophylaxi: Yes Assessment/Plan Assessment/Plan 1. Right sided PNA, I agree with ER assessment could be mycoplasma given diarrhea, constitutional sxs and cxr pattern 2. Live IUP 22 weeks aog 3. Anemia of 4. SIRS POA, no sepsis 5. Diarrhea 6. HTN, malignant 7. DM 2 on OHA, with glucosuria and proteinuria - was once on insulin but taken off bec her "numbers were not too bad for insulin" PLAn: Admit PUlmo and ob gyne consults IVF heart tones periodically Agree with currrent ABx choice, make azithromycin scheduled instead of one time (category B) She is ambulatory so i held off on any DVt prophy braden given live SCds Cough med TYlenol prn MOnitor hypoxia, anytime persistent, CTA might be in order Labetolol prn and schedule home regimen 200 TID - need to lower BP soon enough SSI high dose, resume metformin - need to lower BS aggressively in this Can check hgba1c if nt done by her OB. Seen at ER 10 Dw FER Rodriguez MD Oct 26, 2016 19:51
[2016-10-26] MEDS: LABETALOL HCL 200 MG TABLET PO SCH (20:09)
[2016-10-26 20:32] LABS: NEGATIVE OBC MYCO NEG; POSITIVE OBC MYCO POS
[2016-10-26 22:40] VITALS: BP 154/84
--- NOTE | 2016-10-26 23:18 | ACF ---
Admission Forms Criteria PNEUMONIA, COMMUNITY ACQUIRED Clinical Indications for Admission to Inpatient Care (Place 'X' for any and all applicable criteria): Admission to inpatient status for two midnights or more is indicated for ANY ONE of the following (1)(2)(3): [ ]I. Hypoxia [ ]II. Hemodynamic instability [ ]III. Altered mental status that is severe or persistent [ ]IV. Dehydration that is severe or persistent. [ ]V. Bacteremia [ ]. Moderate-risk or high-risk category patients (Pneumonia Severity Index ( PSI) class IV or V, or CURB-65 score of 3 or greater). [ ]VII. Intermediate-risk category patients (e.g., PSI class III or CURB-65 score 2) who do not improve with outpatient and observation care treatment [ ]VIII. Outpatient treatment failure as indicated by 1 or more of the following(9): [ ]a) Failure to respond to antibiotic (eg, resistant organism) [ ]b) Clinically significant adverse effects from medication (eg, vomiting) [ ]c) Complications of pneumonia (eg, empyema, bacteremia) [ ]d) Significant worsening of comorbid cond necessitating inpatient care (eg, chronic heart failure) [X]IX. Appropriate diagnostic testing and treatment unavailable in outpatient or recovery facility (eg, testing or infection control measures unavailable) [ ]X. Respiratory finding (eg. tachypnea) that do not respond to outpatient observation care treatment [ ]XI. Complicated pleural effusions (eg, emphysema, exudative, loculated) [ ]XII. Immunocompromised patients (e.g., AIDS, chronic steroid use) at moderate or high risk based on clinical evaluation. Extended stay beyond goal length of stay may be needed for (20) [ ]a) Unclear diagnosis [ ]b) Pleural disease [ ]c) Severe pneumonia or treatment failure [ ]d) Respiratory failure [ ]e) New onset hyponatremia (serum Na concentration less than 135 mEq/L(mmol/ L) [ ]f) Clinically significant comorbid illness (eg, heart failure, atrial fibrillation with rapid heart rate, alcohol withdrawal, renal insufficiency)(34)(35) [ ]g) Comorbid acute exacerbation of COPD(36) [ ]h) Concomitant diagnosis of malignancy [ ]i) Concomitant altered mental status [ ]j) Culture-identified Gram-negative or antibiotic-resistant organism (eg, Pseudomonas, methicillin-resistant Staphylococcus aureus MRSA)(30) [ ]k) Healthcare-associated pneumonia (36) The original [facility] [employer] content created by [facility] [employer] has been revised. The portions of the content which have been revised are identified through the use of italic text, and [facility] has neither reviewed nor approved the modified material. All other unmodified content is copyright [facility]. Please see references footnoted in the original [facility] edition 2015 Admission Criteria Met?: Yes GUANAKO SOLO Oct 26, 2016 23:18
[2016-10-26] MEDS: IPRATRPIUM/ALBUTEROL 0.5/2.5MG 3 ML NEBU. NEB SCH (23:40)
[2016-10-27] VITALS (12 sets, daily range): BP systolic 112–160; BP diastolic 48–78
[2016-10-27] MEDS: ACETAMINOPHEN 500 MG TABLET PO PRN ×2 (04:41→13:30)
[2016-10-27] MEDS ORDERED: LABE200T2 PO (04:46)
[2016-10-27 07:02] LABS: BASO # 0.1 x10^3/uL (0.0-0.2); BASO % 0 % (0-3); EOS % 1 % (0-3); HEMOGLOBIN 9.1 g/dL (12.0-15.5); LYMPH # 0.8 x10^3/uL (1.0-4.8); LYMPH % 6 % (24-48); MEAN CORPUSCULAR HEMOGLOBIN 27 pg (25-35); MEAN CORPUSCULAR HGB CONC 33 g/dL (31-37); MEAN CORPUSCULAR VOLUME 84 fL (79-100); MONO % 5 % (0-9); NEUT % 89 % (31-73); PLATELET COUNT 221 x10^3/uL (140-400); RED BLOOD COUNT 3.34 x10^6/uL (3.50-5.40); RED CELL DISTRIBUTION WIDTH 14.2 % (11.5-14.5); WHITE BLOOD COUNT 15.5 x10^3/uL (4.0-11.0)
[2016-10-27] MEDS ORDERED: metFORMIN XR 500 MG TAB.ER.24H PO SCH ×2 (08:00)
[2016-10-27] MEDS: LABETALOL HCL 200 MG TABLET PO SCH ×2 (08:47→14:12)
[2016-10-27] MEDS: INSULIN ASPART 300 UNITS/3 ML INSULN.PEN SQ SCH ×4 (08:53→17:35)
[2016-10-27 08:55] LABS: CALCIUM 7.9 mg/dL (8.5-10.1); CREATININE 1.3 mg/dL (0.6-1.0); GFR 57.4; MAGNESIUM 1.9 mg/dL (1.8-2.4); URIC ACID 7.1 mg/dL (2.6-6.0)
[2016-10-27] MEDS ORDERED: AZITHROMYCIN 250 MG TABLET. PO SCH (09:00)
[2016-10-27] MEDS ORDERED: NON FORMULARY ITEM (Dapagliflozin Propanediol (Farxiga) 10 MG) PO SCH (09:00)
[2016-10-27] MEDS: IPRATRPIUM/ALBUTEROL 0.5/2.5MG 3 ML NEBU. NEB SCH ×3 (09:02→16:56)
--- NOTE | 2016-10-27 09:19 | PDOC2 ---
IZA BARAJAS COLOR LABORATORY TECHNICIAN 10/27/16 0919: CARDIAC CONSULT DATE OF CONSULT Date of Consult DATE: 10/27/16 TIME: 08:59 REASON FOR CONSULT Reason for Consult: elevated troponin REFERRING PHYSICIAN Referring Physician: Darek SOURCE Source: Chart review, Patient HISTORY OF PRESENT ILLNESS HISTORY OF PRESENT ILLNESS This is a pleasant 31 yo female admitted for complains of SOA. Reports that his just started yesterday. Associated with vomiting, diarrhea. She was also having [place] at that time. She is 22 weeks and had hx of preeeclampsia in the past. Reports of no CP, palpitations. She has been doing well prior to yesterday citing that her BG has been good. she does not check her BP regularly. She has gained about 20 pounds. Denies any past seizures or liver problem. She is on only labetolol and metformin. Deneis any recent URI and no notable exposure to others who has had the same symptoms. PAST MEDICAL HISTORY Cardiovascular: HTN, Hyperlipidemia, Other (preeclampsia) Pulmonary: Asthma (?) CENTRAL NERVOUS SYSTEM: Periperal neuropathy GI: No pertinent hx Heme/Onc: Anemia NOS Hepatobiliary: No pertinent hx Psych: Depression Musculoskeletal: Other Rheumatologic: No pertinent hx Infectious disease: No pertinent hx ENT: No pertinent hx Endocrine: Diabetes (2) Dermatology: Other (right groin abscess) Grav: 3 Para: 1 PAST SURGICAL HISTORY Past Surgical History: , Tonsillectomy, Other (right groin I & D; wisdom tooth extraction) FAMILY HISTORY Family History: Heart Disease (father) SOCIAL HISTORY Smoke: Quit ALCOHOL: occassional Drugs: None Lives: with Family CURRENT MEDICATIONS CURRENT MEDICATIONS Current Medications Medications (Trade) Dose Ordered Sig/Riddhi Route PRN Reason Start Time Stop Time Status Last Admin Dose Admin Albuterol/ Ipratropium (Duoneb) 3 ml 1X ONCE NEB 10/26/16 15:30 10/26/16 15:31 DC 10/26/16 15:28 Albuterol Sulfate (Ventolin Neb Soln) 2.5 mg 1X ONCE NEB 10/26/16 16:30 10/26/16 16:31 DC 10/26/16 17:01 Ceftriaxone Sodium 50 ml @ 100 mls/hr 1X ONCE IV 10/26/16 18:15 10/26/16 18:44 DC 10/26/16 18:20 Azithromycin 250 ml @ 250 mls/hr 1X ONCE IV 10/26/16 18:00 10/26/16 18:59 DC 10/26/16 18:56 Ondansetron HCl (Zofran) 4 mg PRN Q6HRS PRN IV NAUSEA/VOMITING 10/26/16 19:33 10/27/16 19:32 10/26/16 19:42 Albuterol/ Ipratropium (Duoneb) 3 ml RTQID NEB 10/26/16 20:00 10/26/16 23:40 Azithromycin (Zithromax) 500 mg DAILY PO 10/27/16 09:00 10/27/16 08:48 Sodium Chloride 1,000 ml @ 100 mls/hr 1X ONCE IV 10/26/16 19:45 10/27/16 05:44 DC 10/27/16 00:51 Insulin Aspart (NovoLOG) 0-9 UNITS TIDWMEALS SQ 10/27/16 08:00 10/27/16 08:53 Labetalol HCl (Normodyne) 10 mg PRN Q2HR PRN IVP BP >/=160/100 10/26/16 19:45 10/26/16 20:35 Labetalol HCl (Trandate) 200 mg TID PO 10/26/16 21:00 10/27/16 08:47 Acetaminophen (Tylenol) 500 mg PRN QID PRN PO FEVER 10/26/16 19:45 10/27/16 04:41 Metformin HCl (Glucophage Xr) 1,000 mg DAILYWBKFT PO 10/27/16 08:00 10/27/16 08:47 ALLERGIES ALLERGIES: Coded Allergies: No Known Drug Allergies (Unverified , 05/09/15) ROS Review of System 14 point ROS evaluated with pertinent positives noted per HPI PHYSICAL EXAM General: Alert, Oriented X3, Cooperative, No acute distress HEENT: Atraumatic, Mucous membr. moist/pink Lungs: Other (basilar crackles to RLL) Heart: Regular rate (SR/ST), Normal S1, Normal S2, Other (distant heart sounds) Abdomen: Soft, No tenderness, Other () Extremities: No cyanosis, Other (2+ bilateral LE pitting edema) Skin: No breakdown, No significant lesion Neuro: Normal speech, Sensation intact Psych/Mental Status: Mental status NL, Mood NL MUSCULOSKELETAL: Osteoarthritic changes both hands VITALS VITALS Vital Signs Date Time Temp Pulse Resp B/P (MAP) Pulse Ox O2 Delivery O2 Flow Rate FiO2 10/27/16 08:47 89 145/71 10/27/16 06:55 98.9 17 94 Nasal Cannula 2.0 98.9 LABS Lab: Laboratory Tests Test 10/26/16 16:00 10/27/16 01:00 10/27/16 06:40 10/27/16 07:02 White Blood Count 19.9 x10^3/uL (4.0-11.0) 15.5 x10^3/uL (4.0-11.0) Red Blood Count 3.70 x10^6/uL (3.50-5.40) 3.34 x10^6/uL (3.50-5.40) Hemoglobin 10.3 g/dL (12.0-15.5) 9.1 g/dL (12.0-15.5) Hematocrit 30.6 % (36.0-47.0) 28.0 % (36.0-47.0) Mean Corpuscular Volume 83 fL (79-100) 84 fL (79-100) Mean Corpuscular Hemoglobin 28 pg (25-35) 27 pg (25-35) Mean Corpuscular Hemoglobin Concent 34 g/dL (31-37) 33 g/dL (31-37) Red Cell Distribution Width 14.2 % (11.5-14.5) 14.2 % (11.5-14.5) Platelet Count 255 x10^3/uL (140-400) 221 x10^3/uL (140-400) Neutrophils (%) (Auto) 90 % (31-73) 89 % (31-73) Lymphocytes (%) (Auto) 6 % (24-48) 6 % (24-48) Monocytes (%) (Auto) 3 % (0-9) 5 % (0-9) Eosinophils (%) (Auto) 1 % (0-3) 1 % (0-3) Basophils (%) (Auto) 0 % (0-3) 0 % (0-3) Neutrophils # (Auto) 17.9 x10^3uL (1.8-7.7) 13.7 x10^3uL (1.8-7.7) Lymphocytes # (Auto) 1.1 x10^3/uL (1.0-4.8) 0.8 x10^3/uL (1.0-4.8) Monocytes # (Auto) 0.7 x10^3/uL (0.0-1.1) 0.7 x10^3/uL (0.0-1.1) Eosinophils # (Auto) 0.1 x10^3/uL (0.0-0.7) 0.1 x10^3/uL (0.0-0.7) Basophils # (Auto) 0.1 x10^3/uL (0.0-0.2) 0.1 x10^3/uL (0.0-0.2) Segmented Neutrophils % 76 % (35-66) Band Neutrophils % 13 % (0-9) Lymphocytes % 8 % (24-48) Monocytes % 2 % (0-10) Metamyelocytes % 1 % (0-0) Toxic Granulation Slight Platelet Estimate Adequate (ADEQUATE) Prothrombin Time 12.6 SEC (11.7-14.0) Prothromb Time International Ratio 1.0 (0.8-1.1) Urine Collection Type Void Urine Color Yellow Urine Clarity Clear Urine pH 6.0 Urine Specific [place] 1.025 Urine Protein >=300 mg/dL (NEG-TRACE) Urine Glucose (UA) 250 mg/dL (NEG) Urine Ketones (Stick) Trace mg/dL (NEG) Urine Blood Moderate (NEG) Urine Nitrite Negative (NEG) Urine Bilirubin Negative (NEG) Urine Urobilinogen Dipstick 1.0 mg/dL (0.2 mg/dL) Urine Leukocyte Esterase Trace (NEG) Urine RBC 1-2 /HPF (0-2) Urine WBC 5-10 /HPF (0-4) Urine Squamous Epithelial Cells Few /LPF Urine Bacteria Many /HPF (0-FEW) Urine Mucus Slight /LPF Sodium Level 137 mmol/L (136-145) Potassium Level 3.9 mmol/L (3.5-5.1) Chloride Level 103 mmol/L (98-107) Carbon Dioxide Level 22 mmol/L (21-32) Anion Gap 12 (6-14) Blood Urea Nitrogen 14 mg/dL (7-20) Creatinine 1.1 mg/dL (0.6-1.0) Estimated GFR (Cockcroft-Gault) 69.6 Glucose Level 181 mg/dL (70-99) Calcium Level 9.2 mg/dL (8.5-10.1) Magnesium Level 2.1 mg/dL (1.8-2.4) Total Bilirubin 0.5 mg/dL (0.2-1.0) Direct Bilirubin 0.1 mg/dL (0.0-0.2) Aspartate Amino Transf (AST/SGOT) 16 U/L (15-37) Alanine Aminotransferase (ALT/SGPT) 17 U/L (14-59) Alkaline Phosphatase 95 U/L (46-116) Creatine Kinase 207 U/L (26-192) Creatine Kinase MB (Mass) 6.8 ng/mL (0.0-3.6) Creatine Kinase MB Relative Index 3.3 % (0-4) Troponin I Quantitative 0.085 ng/mL (0.000-0.055) 0.164 ng/mL (0.000-0.055) 0.134 ng/mL (0.000-0.055) EK-Npr-O-Type Natriuretic Peptide 1673 pg/mL (0-124) Total Protein 7.9 g/dL (6.4-8.2) Albumin 2.7 g/dL (3.4-5.0) Urine Opiates Screen Neg (NEG) Urine Methadone Screen Neg (NEG) Urine Barbiturates Neg (NEG) Urine Phencyclidine Screen Neg (NEG) Urine Amphetamine/Methamphetamine Neg (NEG) Urine Benzodiazepines Screen Neg (NEG) Urine Cocaine Screen Neg (NEG) Urine Cannabinoids Screen Neg (NEG) Urine Ethyl Alcohol Neg (NEG) Mycoplasma Serology (LAB) Positive (NEGATIVE) Glucose (Fingerstick) 160 mg/dL (70-99) ASSESSMENT/PLAN ASSESSMENT/PLAN 1. Atypical pneumonia 2. IUP: 22 wks 3. Preeclampsia features 4. Malignant HTN: Peaked at 254/114. Better with labetolol 5. DM2/HLP/DPN 6. JAZLYN on CKD: unknown baseline, notable for macroalbuminuria 7. Elevated troponin: Likely due to above factors. CP free. Peaked at 0.16, EKG SR with no acute changes Recommendation 1. Will likely need transfer to high risk institution, will defer to [facility] 2. Continue with labetolol. May add IV PRN hydralazine if need be 3. Maintain hydration 4. Recheck CMP and Mg. TSH level 5. TTE. Repeat EKG. Problems: BRE TORRES MD 10/27/16 1201: CARDIAC CONSULT ALLERGIES ALLERGIES: Coded Allergies: No Known Drug Allergies (Unverified , 05/09/15) ASSESSMENT/PLAN ASSESSMENT/PLAN Pt. seen and examined. Agree with above VP COMMUNICATIONS note. 31 y.o woman with single viable at 22 weeks presenting with dyspnea CXR consistent with PNA She has hypoxic resp failure and elevated troponin BP elevated with proteinuria, suggestive of pre-eclampsia. BP elevation may be related to acute pneumonia issues but given proteinuria, would need close control Continue labetalol and hydralazine. Supportive care. Will check echo but suspect will be grossly normal. Thanks for consultation. Problems: IZA BARAJAS APRN Oct 27, 2016 09:19 BRE TORRES MD Oct 27, 2016 12:01
[2016-10-27 09:54] LABS: ALBUMIN 2.3 g/dL (3.4-5.0); DIRECT BILIRUBIN 0.1 mg/dL (0.0-0.2); TOTAL BILIRUBIN 0.5 mg/dL (0.2-1.0); TOTAL PROTEIN 6.4 g/dL (6.4-8.2)
--- NOTE | 2016-10-27 09:56 | PDOC ---
Provider Note Provider Note [id number] acute resp fail abnl cxr pneumonia acute bronchospasm cont abx, echo, if shows r heart strain, will need cta, lovenox, ?protonix ANKITA BERNAL MD Oct 27, 2016 09:56
[2016-10-27] MEDS ORDERED: IV NORMAL SALINE 1000ML BAG 1,000 ML IV ONE (10:00)
--- NOTE | 2016-10-27 10:00 | EKG ---
[facility] [address] [place] [address] Test Date: 2016-10-27 Test Time: 09:58:15 Pat Name: GURPREET UMANA Department: Room: 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
--- NOTE | 2016-10-27 10:09 | EKG ---
[facility] [address] [place] [address] Test Date: 2016-10-26 Test Time: 16:47:47 Pat Name: GURPREET UMANA Department: Room: Gender: F [employer]er: : 1985 Requested By: JANNA MENDIOLA Order Number: [id number] Reading MD: Measurements Intervals [place] Rate: 99 P: 33 ID: [id number] QRS: -3 QRSD: 80 T: 59 QT: 334 QTc: 434 Interpretive Statements SINUS RHYTHM LEFT ATRIAL ABNORMALITY LEFTWARD AXIS QRS(T) CONTOUR ABNORMALITY CONSIDER ANTEROLATERAL MYOCARDIAL DAMAGE RI6.01 Unconfirmed report No previous ECG available for comparison
--- NOTE | 2016-10-27 10:52 | RAD ---
Obstetrical ultrasound-limited, 10/27/2016: History: Check size and dates There is a single intrauterine fetus in a breech orientation. The biparietal diameter measures 5.5 cm compatible with a gestational age of 22-23 weeks. This corresponds well to the other measurements and yields a sonographic EDC of 02/26/2017. This correlates well with the EDC of 03/03/2017 established on the previous ultrasound exam of 07/25/2016. Normal activity and heart motion were seen. The heart rate was 155 bpm. A full survey was not performed at this time. The weight was estimated at 1 pound and 2 ounces +/- 3 ounces. The amniotic fluid volume is within normal limits with the SARA measured at 17.8. The placenta lies anteriorly extending into the fundal region. The cervix was not adequately delineated on this exam. IMPRESSION: Single viable uterine fetus of 22-23 weeks gestational age which has demonstrated normal interval growth since 07/25/2016.
[2016-10-27] MEDS ORDERED: BUDESONIDE 0.5 MG/2 ML NEBU. NEB SCH (11:00)
[2016-10-27] MEDS ORDERED: ENOXAPARIN 40 MG/0.4 ML SYRINGE. SQ SCH (11:00)
--- NOTE | 2016-10-27 11:00 | CONS ---
DATE OF CONSULTATION: 10/27/2016 I was asked to see this 31-year-old lady for shortness of breath, hypoxemia, acute respiratory failure, abnormal chest x-ray, pneumonia. HISTORY OF PRESENT ILLNESS: She does have history of smoking cigars, 2 or 3 per day and she quit smoking in when she was found to be . She is 22 weeks and she started to have vomiting, diarrhea, shortness of breath, cough yesterday. She does not had chest pain, has had chest tightness and wheezing. She did get treatment for asthma with her first . Her child is 7 years old now. She was found to have a high blood pressure. She feels better. Her diarrhea and vomiting have resolved. PAST MEDICAL HISTORY: Hypertension, asthma, diabetes mellitus, chronic kidney disease. , tonsillectomy. FAMILY HISTORY: Positive for heart disease. SOCIAL HISTORY: History of smoking cigars 2-3 per day for about 20 years, but quit in May. ALLERGIES: No known drug allergies. MEDICATIONS: She is on Rocephin, azithromycin, metformin, insulin, labetalol, and DuoNeb. REVIEW OF SYSTEMS: As mentioned as above. She denies leg pain. Other systems are otherwise negative. PHYSICAL EXAMINATION: GENERAL: This is an overweight weight lady. VITAL SIGNS: O2 saturation on 2 liters of oxygen is 96%, respiratory rate 18, heart rate 89, blood pressure 145/71. HEENT: Normocephalic, atraumatic. Pupils equal, round, reactive to light. Throat is clear. There is dependent palate. High tongue base. Nose is clear. NECK: There is no JVD, lymphadenopathy or thyromegaly. CARDIOVASCULAR: Regular rate and rhythm. PMI is nondisplaced. CHEST: Inspection is normal. LUNGS: There is rhonchi and crackles on the right, few end expiratory wheezing with forced exhalation. ABDOMEN: Soft. Bowel sounds are good. She is 22 weeks . EXTREMITIES: There is no edema. LYMPHATICS: There is no lymphadenopathy. NEUROLOGIC: Alert and oriented. SKIN: Warm. LABORATORY DATA: I reviewed the following lab data, lower extremity venous Doppler negative. Chest x-ray shows significant infiltrate on the right side. Mycoplasma serology is positive. WBC 15.5, hemoglobin 9.1, platelets 221. Sodium 135, potassium 4, chloride 103, CO2 of 22, glucose 166, BUN 16, creatinine 1.3, GFR 57. Troponin 0.16 at 1 a.m. and 0.13 at 6:00 a.m. Urine drug screen is negative. INR 1. IMPRESSION: 1. Acute respiratory failure secondary to pneumonia, acute bronchospasm, versus others. 2. Abnormal chest x-ray. 3. Pulmonary infiltrate. 4. Mycoplasma pneumoniae. 5. Diabetes mellitus. 6. Hypertension. 7. Chronic kidney disease. PLAN AND RECOMMENDATIONS: 1. Titrate the FiO2 to keep O2 saturation 95%. 2. Continue not smoking. 3. Continue Rocephin and azithromycin. 4. Start Protonix for stress ulcer prophylaxis. 5. Start Lovenox for DVT prophylaxis. 6. The patient's lower extremity venous Doppler has been negative. I would like to do a CT angiogram, but she has chronic kidney disease. So at this point, I would an echocardiogram, if it shows any right heart strain, I will do CT of the chest. Meanwhile, we will hydrate the patient. She may require Nephrology consultation. 7. OBGYN is consulted. She may need to be transfer to high risk unit, if it not available at this hospital, she may need to be transferred to a hospital with high risk unit. 8. Monitor respiratory status very closely. 9. The findings and recommendations were discussed with the patient and Dr. Oswald ____ Adri. Thank you very much for allowing me to participate in care of this very nice lady. I have discussed the findings and recommendations with the patient and she understood and agreed to proceed with the plan. I have answered all of her questions. ANKITA BERNAL M.D. : ROSA ELENA/demario JOB#: [id number] / [id number]
--- NOTE | 2016-10-27 12:18 | PDOC ---
PROGRESS NOTES Chief Complaint Chief Complaint CC: SOA 2. IUP: 22 wks 3. Preeclampsia features 4. HTN 5. DM2 6. HLD 7. CKD History of Present Illness History of Present Illness Pt was admitted for atypical pnu and started on azithromycin. Pt was found to be in hypertensive urgency and started on labetalol which has since improved. Tachypnea and low O2 sats have also improved since admission. UA showed UTI. 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 Vitals Vitals Vital Signs Date Time Temp Pulse Resp B/P (MAP) Pulse Ox O2 Delivery O2 Flow Rate FiO2 10/27/16 11:00 96 Nasal Cannula 4.0 10/27/16 10:41 98.5 86 18 139/78 (98) 98.5 Physical Exam General: Alert, Oriented X3, Cooperative, No acute distress Heart: Regular rate (SR/ST), Normal S1, Normal S2, Other (distant heart sounds) Abdomen: Soft, No tenderness, Other () Extremities: No cyanosis, Other (2+ bilateral LE pitting edema) Skin: No breakdown, No significant lesion Labs LABS Laboratory Tests Test 10/26/16 16:00 10/27/16 01:00 10/27/16 06:40 10/27/16 07:02 White Blood Count 19.9 x10^3/uL (4.0-11.0) 15.5 x10^3/uL (4.0-11.0) Red Blood Count 3.70 x10^6/uL (3.50-5.40) 3.34 x10^6/uL (3.50-5.40) Hemoglobin 10.3 g/dL (12.0-15.5) 9.1 g/dL (12.0-15.5) Hematocrit 30.6 % (36.0-47.0) 28.0 % (36.0-47.0) Mean Corpuscular Volume 83 fL (79-100) 84 fL (79-100) Mean Corpuscular Hemoglobin 28 pg (25-35) 27 pg (25-35) Mean Corpuscular Hemoglobin Concent 34 g/dL (31-37) 33 g/dL (31-37) Red Cell Distribution Width 14.2 % (11.5-14.5) 14.2 % (11.5-14.5) Platelet Count 255 x10^3/uL (140-400) 221 x10^3/uL (140-400) Neutrophils (%) (Auto) 90 % (31-73) 89 % (31-73) Lymphocytes (%) (Auto) 6 % (24-48) 6 % (24-48) Monocytes (%) (Auto) 3 % (0-9) 5 % (0-9) Eosinophils (%) (Auto) 1 % (0-3) 1 % (0-3) Basophils (%) (Auto) 0 % (0-3) 0 % (0-3) Neutrophils # (Auto) 17.9 x10^3uL (1.8-7.7) 13.7 x10^3uL (1.8-7.7) Lymphocytes # (Auto) 1.1 x10^3/uL (1.0-4.8) 0.8 x10^3/uL (1.0-4.8) Monocytes # (Auto) 0.7 x10^3/uL (0.0-1.1) 0.7 x10^3/uL (0.0-1.1) Eosinophils # (Auto) 0.1 x10^3/uL (0.0-0.7) 0.1 x10^3/uL (0.0-0.7) Basophils # (Auto) 0.1 x10^3/uL (0.0-0.2) 0.1 x10^3/uL (0.0-0.2) Segmented Neutrophils % 76 % (35-66) Band Neutrophils % 13 % (0-9) Lymphocytes % 8 % (24-48) Monocytes % 2 % (0-10) Metamyelocytes % 1 % (0-0) Toxic Granulation Slight Platelet Estimate Adequate (ADEQUATE) Prothrombin Time 12.6 SEC (11.7-14.0) Prothromb Time International Ratio 1.0 (0.8-1.1) Urine Collection Type Void Urine Color Yellow Urine Clarity Clear Urine pH 6.0 Urine Specific Delta 1.025 Urine Protein >=300 mg/dL (NEG-TRACE) Urine Glucose (UA) 250 mg/dL (NEG) Urine Ketones (Stick) Trace mg/dL (NEG) Urine Blood Moderate (NEG) Urine Nitrite Negative (NEG) Urine Bilirubin Negative (NEG) Urine Urobilinogen Dipstick 1.0 mg/dL (0.2 mg/dL) Urine Leukocyte Esterase Trace (NEG) Urine RBC 1-2 /HPF (0-2) Urine WBC 5-10 /HPF (0-4) Urine Squamous Epithelial Cells Few /LPF Urine Bacteria Many /HPF (0-FEW) Urine Mucus Slight /LPF Sodium Level 137 mmol/L (136-145) 135 mmol/L (136-145) Potassium Level 3.9 mmol/L (3.5-5.1) 4.0 mmol/L (3.5-5.1) Chloride Level 103 mmol/L (98-107) 103 mmol/L (98-107) Carbon Dioxide Level 22 mmol/L (21-32) 22 mmol/L (21-32) Anion Gap 12 (6-14) 10 (6-14) Blood Urea Nitrogen 14 mg/dL (7-20) 16 mg/dL (7-20) Creatinine 1.1 mg/dL (0.6-1.0) 1.3 mg/dL (0.6-1.0) Estimated GFR (Cockcroft-Gault) 69.6 57.4 Glucose Level 181 mg/dL (70-99) 166 mg/dL (70-99) Calcium Level 9.2 mg/dL (8.5-10.1) 7.9 mg/dL (8.5-10.1) Magnesium Level 2.1 mg/dL (1.8-2.4) 1.9 mg/dL (1.8-2.4) Total Bilirubin 0.5 mg/dL (0.2-1.0) 0.5 mg/dL (0.2-1.0) Direct Bilirubin 0.1 mg/dL (0.0-0.2) 0.1 mg/dL (0.0-0.2) Aspartate Amino Transf (AST/SGOT) 16 U/L (15-37) 14 U/L (15-37) Alanine Aminotransferase (ALT/SGPT) 17 U/L (14-59) 15 U/L (14-59) Alkaline Phosphatase 95 U/L (46-116) 82 U/L (46-116) Creatine Kinase 207 U/L (26-192) Creatine Kinase MB (Mass) 6.8 ng/mL (0.0-3.6) Creatine Kinase MB Relative Index 3.3 % (0-4) Troponin I Quantitative 0.085 ng/mL (0.000-0.055) 0.164 ng/mL (0.000-0.055) 0.134 ng/mL (0.000-0.055) IP-Mch-R-Type Natriuretic Peptide 1673 pg/mL (0-124) Total Protein 7.9 g/dL (6.4-8.2) 6.4 g/dL (6.4-8.2) Albumin 2.7 g/dL (3.4-5.0) 2.3 g/dL (3.4-5.0) Urine Opiates Screen Neg (NEG) Urine Methadone Screen Neg (NEG) Urine Barbiturates Neg (NEG) Urine Phencyclidine Screen Neg (NEG) Urine Amphetamine/Methamphetamine Neg (NEG) Urine Benzodiazepines Screen Neg (NEG) Urine Cocaine Screen Neg (NEG) Urine Cannabinoids Screen Neg (NEG) Urine Ethyl Alcohol Neg (NEG) Mycoplasma Serology (LAB) Positive (NEGATIVE) Uric Acid 7.1 mg/dL (2.6-6.0) Thyroid Stimulating Hormone (TSH) 1.631 uIU/mL (0.358-3.74) Glucose (Fingerstick) 160 mg/dL (70-99) Test 10/27/16 11:21 Glucose (Fingerstick) 142 mg/dL (70-99) Review of Systems Review of Systems Complains of SOA Coughs up thick white sputum Assessment and Plan Assessmemt and Plan Problems Medical Problems: (1) Pneumonia Status: Acute CC: SOA 1. PNU: continue azithromycin, breathing treatments, daily cbc/bmp 2. IUP (22 wks): continue to monitor for preeclampsia s/s 3. Preeclampsia features: continue to monitor 4. HTN: Continue labetalol 5. 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 CKD: Continue to monitor Probable transfer to [facility] for high risk Problems: Comment Review of Relevant I have reviewed the following items john (where applicable) has been applied. Labs Laboratory Tests Test 10/26/16 16:00 10/27/16 01:00 10/27/16 06:40 10/27/16 07:02 White Blood Count 19.9 x10^3/uL (4.0-11.0) 15.5 x10^3/uL (4.0-11.0) Red Blood Count 3.70 x10^6/uL (3.50-5.40) 3.34 x10^6/uL (3.50-5.40) Hemoglobin 10.3 g/dL (12.0-15.5) 9.1 g/dL (12.0-15.5) Hematocrit 30.6 % (36.0-47.0) 28.0 % (36.0-47.0) Mean Corpuscular Volume 83 fL (79-100) 84 fL (79-100) Mean Corpuscular Hemoglobin 28 pg (25-35) 27 pg (25-35) Mean Corpuscular Hemoglobin Concent 34 g/dL (31-37) 33 g/dL (31-37) Red Cell Distribution Width 14.2 % (11.5-14.5) 14.2 % (11.5-14.5) Platelet Count 255 x10^3/uL (140-400) 221 x10^3/uL (140-400) Neutrophils (%) (Auto) 90 % (31-73) 89 % (31-73) Lymphocytes (%) (Auto) 6 % (24-48) 6 % (24-48) Monocytes (%) (Auto) 3 % (0-9) 5 % (0-9) Eosinophils (%) (Auto) 1 % (0-3) 1 % (0-3) Basophils (%) (Auto) 0 % (0-3) 0 % (0-3) Neutrophils # (Auto) 17.9 x10^3uL (1.8-7.7) 13.7 x10^3uL (1.8-7.7) Lymphocytes # (Auto) 1.1 x10^3/uL (1.0-4.8) 0.8 x10^3/uL (1.0-4.8) Monocytes # (Auto) 0.7 x10^3/uL (0.0-1.1) 0.7 x10^3/uL (0.0-1.1) Eosinophils # (Auto) 0.1 x10^3/uL (0.0-0.7) 0.1 x10^3/uL (0.0-0.7) Basophils # (Auto) 0.1 x10^3/uL (0.0-0.2) 0.1 x10^3/uL (0.0-0.2) Segmented Neutrophils % 76 % (35-66) Band Neutrophils % 13 % (0-9) Lymphocytes % 8 % (24-48) Monocytes % 2 % (0-10) Metamyelocytes % 1 % (0-0) Toxic Granulation Slight Platelet Estimate Adequate (ADEQUATE) Prothrombin Time 12.6 SEC (11.7-14.0) Prothromb Time International Ratio 1.0 (0.8-1.1) Urine Collection Type Void Urine Color Yellow Urine Clarity Clear Urine pH 6.0 Urine Specific Delta 1.025 Urine Protein >=300 mg/dL (NEG-TRACE) Urine Glucose (UA) 250 mg/dL (NEG) Urine Ketones (Stick) Trace mg/dL (NEG) Urine Blood Moderate (NEG) Urine Nitrite Negative (NEG) Urine Bilirubin Negative (NEG) Urine Urobilinogen Dipstick 1.0 mg/dL (0.2 mg/dL) Urine Leukocyte Esterase Trace (NEG) Urine RBC 1-2 /HPF (0-2) Urine WBC 5-10 /HPF (0-4) Urine Squamous Epithelial Cells Few /LPF Urine Bacteria Many /HPF (0-FEW) Urine Mucus Slight /LPF Sodium Level 137 mmol/L (136-145) 135 mmol/L (136-145) Potassium Level 3.9 mmol/L (3.5-5.1) 4.0 mmol/L (3.5-5.1) Chloride Level 103 mmol/L (98-107) 103 mmol/L (98-107) Carbon Dioxide Level 22 mmol/L (21-32) 22 mmol/L (21-32) Anion Gap 12 (6-14) 10 (6-14) Blood Urea Nitrogen 14 mg/dL (7-20) 16 mg/dL (7-20) Creatinine 1.1 mg/dL (0.6-1.0) 1.3 mg/dL (0.6-1.0) Estimated GFR (Cockcroft-Gault) 69.6 57.4 Glucose Level 181 mg/dL (70-99) 166 mg/dL (70-99) Calcium Level 9.2 mg/dL (8.5-10.1) 7.9 mg/dL (8.5-10.1) Magnesium Level 2.1 mg/dL (1.8-2.4) 1.9 mg/dL (1.8-2.4) Total Bilirubin 0.5 mg/dL (0.2-1.0) 0.5 mg/dL (0.2-1.0) Direct Bilirubin 0.1 mg/dL (0.0-0.2) 0.1 mg/dL (0.0-0.2) Aspartate Amino Transf (AST/SGOT) 16 U/L (15-37) 14 U/L (15-37) Alanine Aminotransferase (ALT/SGPT) 17 U/L (14-59) 15 U/L (14-59) Alkaline Phosphatase 95 U/L (46-116) 82 U/L (46-116) Creatine Kinase 207 U/L (26-192) Creatine Kinase MB (Mass) 6.8 ng/mL (0.0-3.6) Creatine Kinase MB Relative Index 3.3 % (0-4) Troponin I Quantitative 0.085 ng/mL (0.000-0.055) 0.164 ng/mL (0.000-0.055) 0.134 ng/mL (0.000-0.055) HL-Lis-W-Type Natriuretic Peptide 1673 pg/mL (0-124) Total Protein 7.9 g/dL (6.4-8.2) 6.4 g/dL (6.4-8.2) Albumin 2.7 g/dL (3.4-5.0) 2.3 g/dL (3.4-5.0) Urine Opiates Screen Neg (NEG) Urine Methadone Screen Neg (NEG) Urine Barbiturates Neg (NEG) Urine Phencyclidine Screen Neg (NEG) Urine Amphetamine/Methamphetamine Neg (NEG) Urine Benzodiazepines Screen Neg (NEG) Urine Cocaine Screen Neg (NEG) Urine Cannabinoids Screen Neg (NEG) Urine Ethyl Alcohol Neg (NEG) Mycoplasma Serology (LAB) Positive (NEGATIVE) Uric Acid 7.1 mg/dL (2.6-6.0) Thyroid Stimulating Hormone (TSH) 1.631 uIU/mL (0.358-3.74) Glucose (Fingerstick) 160 mg/dL (70-99) Test 10/27/16 11:21 Glucose (Fingerstick) 142 mg/dL (70-99) Laboratory Tests Test 10/26/16 16:00 10/27/16 01:00 10/27/16 06:40 10/27/16 07:02 White Blood Count 19.9 x10^3/uL (4.0-11.0) 15.5 x10^3/uL (4.0-11.0) Red Blood Count 3.70 x10^6/uL (3.50-5.40) 3.34 x10^6/uL (3.50-5.40) Hemoglobin 10.3 g/dL (12.0-15.5) 9.1 g/dL (12.0-15.5) Hematocrit 30.6 % (36.0-47.0) 28.0 % (36.0-47.0) Mean Corpuscular Volume 83 fL (79-100) 84 fL (79-100) Mean Corpuscular Hemoglobin 28 pg (25-35) 27 pg (25-35) Mean Corpuscular Hemoglobin Concent 34 g/dL (31-37) 33 g/dL (31-37) Red Cell Distribution Width 14.2 % (11.5-14.5) 14.2 % (11.5-14.5) Platelet Count 255 x10^3/uL (140-400) 221 x10^3/uL (140-400) Neutrophils (%) (Auto) 90 % (31-73) 89 % (31-73) Lymphocytes (%) (Auto) 6 % (24-48) 6 % (24-48) Monocytes (%) (Auto) 3 % (0-9) 5 % (0-9) Eosinophils (%) (Auto) 1 % (0-3) 1 % (0-3) Basophils (%) (Auto) 0 % (0-3) 0 % (0-3) Neutrophils # (Auto) 17.9 x10^3uL (1.8-7.7) 13.7 x10^3uL (1.8-7.7) Lymphocytes # (Auto) 1.1 x10^3/uL (1.0-4.8) 0.8 x10^3/uL (1.0-4.8) Monocytes # (Auto) 0.7 x10^3/uL (0.0-1.1) 0.7 x10^3/uL (0.0-1.1) Eosinophils # (Auto) 0.1 x10^3/uL (0.0-0.7) 0.1 x10^3/uL (0.0-0.7) Basophils # (Auto) 0.1 x10^3/uL (0.0-0.2) 0.1 x10^3/uL (0.0-0.2) Segmented Neutrophils % 76 % (35-66) Band Neutrophils % 13 % (0-9) Lymphocytes % 8 % (24-48) Monocytes % 2 % (0-10) Metamyelocytes % 1 % (0-0) Toxic Granulation Slight Platelet Estimate Adequate (ADEQUATE) Prothrombin Time 12.6 SEC (11.7-14.0) Prothromb Time International Ratio 1.0 (0.8-1.1) Urine Collection Type Void Urine Color Yellow Urine Clarity Clear Urine pH 6.0 Urine Specific Delta 1.025 Urine Protein >=300 mg/dL (NEG-TRACE) Urine Glucose (UA) 250 mg/dL (NEG) Urine Ketones (Stick) Trace mg/dL (NEG) Urine Blood Moderate (NEG) Urine Nitrite Negative (NEG) Urine Bilirubin Negative (NEG) Urine Urobilinogen Dipstick 1.0 mg/dL (0.2 mg/dL) Urine Leukocyte Esterase Trace (NEG) Urine RBC 1-2 /HPF (0-2) Urine WBC 5-10 /HPF (0-4) Urine Squamous Epithelial Cells Few /LPF Urine Bacteria Many /HPF (0-FEW) Urine Mucus Slight /LPF Sodium Level 137 mmol/L (136-145) 135 mmol/L (136-145) Potassium Level 3.9 mmol/L (3.5-5.1) 4.0 mmol/L (3.5-5.1) Chloride Level 103 mmol/L (98-107) 103 mmol/L (98-107) Carbon Dioxide Level 22 mmol/L (21-32) 22 mmol/L (21-32) Anion Gap 12 (6-14) 10 (6-14) Blood Urea Nitrogen 14 mg/dL (7-20) 16 mg/dL (7-20) Creatinine 1.1 mg/dL (0.6-1.0) 1.3 mg/dL (0.6-1.0) Estimated GFR (Cockcroft-Gault) 69.6 57.4 Glucose Level 181 mg/dL (70-99) 166 mg/dL (70-99) Calcium Level 9.2 mg/dL (8.5-10.1) 7.9 mg/dL (8.5-10.1) Magnesium Level 2.1 mg/dL (1.8-2.4) 1.9 mg/dL (1.8-2.4) Total Bilirubin 0.5 mg/dL (0.2-1.0) 0.5 mg/dL (0.2-1.0) Direct Bilirubin 0.1 mg/dL (0.0-0.2) 0.1 mg/dL (0.0-0.2) Aspartate Amino Transf (AST/SGOT) 16 U/L (15-37) 14 U/L (15-37) Alanine Aminotransferase (ALT/SGPT) 17 U/L (14-59) 15 U/L (14-59) Alkaline Phosphatase 95 U/L (46-116) 82 U/L (46-116) Creatine Kinase 207 U/L (26-192) Creatine Kinase MB (Mass) 6.8 ng/mL (0.0-3.6) Creatine Kinase MB Relative Index 3.3 % (0-4) Troponin I Quantitative 0.085 ng/mL (0.000-0.055) 0.164 ng/mL (0.000-0.055) 0.134 ng/mL (0.000-0.055) JU-Nzw-Q-Type Natriuretic Peptide 1673 pg/mL (0-124) Total Protein 7.9 g/dL (6.4-8.2) 6.4 g/dL (6.4-8.2) Albumin 2.7 g/dL (3.4-5.0) 2.3 g/dL (3.4-5.0) Urine Opiates Screen Neg (NEG) Urine Methadone Screen Neg (NEG) Urine Barbiturates Neg (NEG) Urine Phencyclidine Screen Neg (NEG) Urine Amphetamine/Methamphetamine Neg (NEG) Urine Benzodiazepines Screen Neg (NEG) Urine Cocaine Screen Neg (NEG) Urine Cannabinoids Screen Neg (NEG) Urine Ethyl Alcohol Neg (NEG) Mycoplasma Serology (LAB) Positive (NEGATIVE) Uric Acid 7.1 mg/dL (2.6-6.0) Thyroid Stimulating Hormone (TSH) 1.631 uIU/mL (0.358-3.74) Glucose (Fingerstick) 160 mg/dL (70-99) Test 10/27/16 11:21 Glucose (Fingerstick) 142 mg/dL (70-99) Medications Current Medications Albuterol/ Ipratropium (Duoneb) 3 ml 1X ONCE NEB Last administered on 15:28; Start 10/26/16 at 15:30; Stop 10/26/16 at 15:31; Status DC Albuterol Sulfate (Ventolin Neb Soln) 2.5 mg 1X ONCE NEB Last administered on 10/26/16 17:01; Start 10/26/16 at 16:30; Stop 10/26/16 at 16:31; Status DC Ceftriaxone Sodium 50 ml @ 100 mls/hr 1X ONCE IV Last administered on 18:20; Start 10/26/16 at 18:15; Stop 10/26/16 at 18:44; Status DC Azithromycin 250 ml @ 250 mls/hr 1X ONCE IV Last administered on 10/26/16 18 :56; Start 10/26/16 at 18:00; Stop 10/26/16 at 18:59; Status DC Ceftriaxone Sodium 1 gm/ Sodium Chloride 50 ml @ 100 mls/hr Q24H IV ; Start at 18:00 Ondansetron HCl (Zofran) 4 mg PRN Q8HRS PRN IV NAUSEA/VOMITING; Start 10/26/16 at 19:00; Stop 10/26/16 at 19:37; Status DC Ondansetron HCl (Zofran) 4 mg PRN Q6HRS PRN IV NAUSEA/VOMITING Last administered on 10/26/16 19:42; Start 10/26/16 at 19:33; Stop 10/27/16 at 19:32 Albuterol/ Ipratropium (Duoneb) 3 ml RTQID NEB Last administered on 10/27/16 10:58; Start 10/26/16 at 20:00 Guaifenesin (Robitussin Dm) 10 ml PRN Q6HRS PRN PO COUGH; Start 10/26/16 at 19: 45 Azithromycin (Zithromax) 500 mg DAILY PO Last administered on 10/27/16 08:48; Start 10/27/16 at 09:00 Sodium Chloride 1,000 ml @ 100 mls/hr 1X ONCE IV Last administered on 00:51; Start 10/26/16 at 19:45; Stop 10/27/16 at 05:44; Status DC Loperamide HCl (Imodium) 2 mg PRN Q15MIN PRN PO DIARRHEA; Start 10/26/16 at 19: 45 Oxycodone/ Acetaminophen (Percocet 7.5/ 325) 1 tab PRN Q4HRS PRN PO PAIN; Start 10/26/16 at 19:45; Stop 10/27/16 at 04:54; Status DC Non-Formulary Medication 10 mg DAILY PO ; Start 10/27/16 at 09:00; Stop at 09:00; Status DC Metformin HCl (Glucophage Xr) 500 mg DAILYWBKFT PO ; Start 10/27/16 at 08:00; Stop 10/27/16 at 08:00; Status DC Insulin Aspart (NovoLOG) 0-9 UNITS TIDWMEALS SQ Last administered on 10/27/16 08:53; Start 10/27/16 at 08:00 Dextrose (Dextrose 50%-Water Syringe) 12.5 gm PRN Q15MIN PRN IV SEE COMMENTS; Start 10/26/16 at 19:45 Labetalol HCl (Normodyne) 10 mg PRN Q2HR PRN IVP BP >/=160/100 Last administered on 10/26/16 20:35; Start 10/26/16 at 19:45 Labetalol HCl (Trandate) 200 mg TID PO Last administered on 10/27/16 08:47; Start 10/26/16 at 21:00 Acetaminophen (Tylenol) 500 mg PRN QID PRN PO FEVER Last administered on 04:41; Start 10/26/16 at 19:45 Metformin HCl (Glucophage Xr) 1,000 mg DAILYWBKFT PO Last administered on 08:47; Start 10/27/16 at 08:00 Sodium Chloride 1,000 ml @ 100 mls/hr 1X ONCE IV Last administered on 11:30; Start 10/27/16 at 10:00; Stop 10/27/16 at 19:59 Enoxaparin Sodium (Lovenox 40mg Syringe) 40 mg Q24H SQ Last administered on 11:30; Start 10/27/16 at 11:00 Budesonide (Pulmicort) 0.5 mg RTBID NEB Last administered on 10/27/16 10:58; Start 10/27/16 at 11:00 Active Scripts Active Reported Labetalol Hcl 200 Mg Tablet 200 Mg PO TID Metformin Hcl Er (Metformin Hcl) 500 Mg Tab.er.24 1,000 Mg PO DAILY Vitals/I & O Vital Sign - Last 24 Hours 10/26/16 10/26/16 10/26/16 10/26/16 14:50 15:21 16:47 18:00 Temp 98.2 98.2 Pulse 94 94 98 100 Resp 26 33 B/P (MAP) 201/93 (129) 192/88 (122) 201/99 (133) 212/105 (140) Pulse Ox 86 89 96 O2 Delivery Room Air Nasal Cannula Nasal Cannula Nasal Cannula O2 Flow Rate 2.0 2.0 2.0 10/26/16 10/26/16 10/26/16 10/26/16 18:30 19:00 19:30 20:00 Pulse 92 104 100 102 Resp 24 B/P (MAP) 201/95 (130) 251/114 (159) 233/105 (147) 201/93 (129) Pulse Ox 99 96 98 O2 Delivery Nasal Cannula Nasal Cannula Nasal Cannula Nasal Cannula O2 Flow Rate 2.0 2.0 2.0 2.0 10/26/16 10/26/16 10/26/16 10/26/16 20:08 20:09 20:30 20:33 Pulse 100 100 98 100 B/P (MAP) 194/88 (123) 194/88 192/92 (125) 188/93 (124) Pulse Ox 99 100 O2 Delivery Nasal Cannula Nasal Cannula Nasal Cannula O2 Flow Rate 2.0 2.0 2.0 10/26/16 10/26/16 10/26/16 10/26/16 20:35 20:36 20:39 21:00 Pulse 99 106 90 88 Resp 28 32 B/P (MAP) 188/93 184/88 (120) 169/79 (109) 152/73 (99) Pulse Ox 99 94 O2 Delivery Nasal Cannula Nasal Cannula Nasal Cannula O2 Flow Rate 2.0 2.0 2.0 10/26/16 10/26/16 10/26/16 10/26/16 21:30 22:40 23:30 23:41 Temp 98.7 98.7 Pulse 90 86 Resp 30 18 B/P (MAP) 150/92 (111) 154/84 (107) Pulse Ox 92 96 93 O2 Delivery Nasal Cannula Nasal Cannula Nasal Cannula Nasal Cannula O2 Flow Rate 2.0 2.0 2.0 2.0 10/27/16 10/27/16 10/27/16 10/27/16 00:30 03:10 06:55 08:00 Temp 98.6 98.7 98.9 98.6 98.7 98.9 Pulse 94 91 89 Resp 18 17 B/P (MAP) 141/78 (99) 140/74 (96) 145/71 (95) Pulse Ox 95 96 94 O2 Delivery Nasal Cannula Nasal Cannula Nasal Cannula Nasal Cannula O2 Flow Rate 2.0 2.0 2.0 2.0 10/27/16 10/27/16 10/27/16 10/27/16 08:47 09:04 10:41 11:00 Temp 98.5 98.5 Pulse 89 86 Resp 18 B/P (MAP) 145/71 139/78 (98) Pulse Ox 96 79 96 O2 Delivery Nasal Cannula Nasal Cannula Nasal Cannula O2 Flow Rate 2.0 2.0 4.0 Intake and Output 10/26/16 10/26/16 10/27/16 15:00 23:00 07:00 Intake Total 300 ml 600 ml Output Total 125 ml Balance 300 ml 475 ml SUZANNA ENGEL III DO Oct 27, 2016 12:18
[2016-10-27] MEDS: ONDANSETRON PF 4 MG/2 ML VIAL. IV PRN (13:31)
--- NOTE | 2016-10-27 15:28 | CARD ---
APPROVED REPORT EXAM: Two-dimensional and M-mode echocardiogram with Doppler and color Doppler. Other Information Quality : GoodHR: 93bpm Rhythm : NSR INDICATION Elevated troponin, Hypertension RISK FACTORS Hypertension Obesity 2D DIMENSIONS RVDd3.3 (2.9-3.5cm)IVSd1.2 (0.7-1.1cm) Aortic Root(2D)2.7 (2.0-3.7cm)LVDd5.6 (3.9-5.9cm) LVOT Diameter2.3 (1.8-2.4cm)PWd1.2 (0.7-1.1cm) LVDs3.4 (2.5-4.0cm)FS (%) 38.8 % SV105.2 mlLVEF(%)68.5 (>50%) Aortic Valve AoV Peak Ronald.132.8cm/sAoV VTI20.7cm AO Peak GR.7.1mmHgLVOT Peak Ronald.103.5cm/s AO Mean GR.4mmHgAVA (VMAX)3.10cm2 Mitral Valve MV E Bojmjmsk153.2cm/sMV E Peak Gr.6mmHg MV DECEL [id number] A Ngfjdoiv54.8cm/s MV E Mean Gr.2mmHgE/A Ratio2.0 MV A [id number] Pulmonary Valve PV Peak Esuloxxu672.4cm/s LEFT VENTRICLE The left ventricle is normal size. There is mild concentric left ventricular hypertrophy. The left ve ntricular systolic function is normal. The Ejection Fraction is 65-70%. There is normal LV segmental wall motion. The left ventricular diastolic function and filling is normal for age. RIGHT VENTRICLE The right ventricle is normal size. There is normal right ventricular wall thickness. The right ventr icular systolic function is normal. ATRIA The left atrium is mildly dilated. The right atrium size is normal. The interatrial septum is intact with no evidence for an atrial septal defect or patent foramen ovale as noted on 2-D or Doppler imagi ng. AORTIC VALVE The aortic valve is normal in structure and function. The aortic valve is trileaflet. Doppler and Col or Flow revealed no significant aortic regurgitation. There is no significant aortic valvular stenosi s. MITRAL VALVE The mitral valve is normal in structure and function. There is no evidence of mitral valve prolapse. There is no mitral valve stenosis. Doppler and Color Flow revealed no mitral valve regurgitation note d. TRICUSPID VALVE Doppler and Color Flow revealed no tricuspid valve regurgitation noted. Unable to determine pulmonary artery pressure at exam time. PULMONIC VALVE The pulmonary valve is not well visualized but appears to open adequately. Doppler and Color Flow rev ealed trace pulmonic valvular regurgitation. There is no pulmonic valvular stenosis by spectral Doppl er. GREAT VESSELS The aortic root is normal in size. The ascending aorta is normal in size. The pulmonary artery is nor mal. The IVC is normal in size and collapses >50% with inspiration. PERICARDIAL EFFUSION There is no evidence of significant pericardial effusion. Critical Notification Critical Value: No <Conclusion> The left ventricular systolic function is normal. The Ejection Fraction is 65-70%. There is normal LV segmental wall motion. There is no evidence of significant pericardial effusion.
== END 2016-10-27 19:23 | disposition short-term general hospital (02) | DRG 781 ==
LOC: ER 14:18 → 6 SOUTH 18:40 → 1 WEST ICU 10-27 12:40
PROVIDERS: ADMIT Internal Medicine; ATTEND Internal Medicine
DX: O99.512 Diseases of the respiratory system complicating pregnancy, second trimester (principal); J96.01 Acute respiratory failure with hypoxia; J18.9 Pneumonia, unspecified organism; N17.9 Acute kidney failure, unspecified; O26.832 Pregnancy related renal disease, second trimester; O14.92 Unspecified pre-eclampsia, second trimester; O23.42 Unspecified infection of urinary tract in pregnancy, second trimester; E11.22 Type 2 diabetes mellitus with diabetic chronic kidney disease; O99.89 Other specified diseases and conditions complicating pregnancy, childbirth and the puerperium; O99.282 Endocrine, nutritional and metabolic diseases complicating pregnancy, second trimester; N18.9 Chronic kidney disease, unspecified; I12.9 Hypertensive chronic kidney disease with stage 1 through stage 4 chronic kidney disease, or unspecified chronic kidney disease; E78.5 Hyperlipidemia, unspecified; I16.0 Hypertensive urgency; J45.909 Unspecified asthma, uncomplicated; Z82.49 Family history of ischemic heart disease and other diseases of the circulatory system; Z3A.22 22 weeks gestation of pregnancy; Z87.891 Personal history of nicotine dependence
CPT/HCPCS: 36415; 71020; 76805; 80048; 80076; 80307; 81001; 82553; 82962; 83036; 83735; 83880; 84443; 84484; 84550; 85007; 85025; 85610; 86738; 87040; 87086; 93005; 93306; 93970; 94250; 94640; 96365; 96366; 96367; 96375; J0456; J0690; J0696; J1650; J1815; J2405; J3490; J7030; J7613; J7620; J7626; Q0144; 99285-25; G0479

== ENCOUNTER 2018-09-11 15:31 | Emergency (ER) | payer OTHER ==
[~2018-09-11] VITALS: Ht 170.2 cm; Wt 88.5 kg
[~2018-09-11 15:31] MED LIST changes: +LABE200T4 PO; -OXYC-327 PO; +OXYC1TAB19 PO
[2018-09-11 16:00] VITALS: BP 168/91
--- NOTE | 2018-09-11 16:10 | PHYS DOC ---
Past Medical History Past Medical History: Anxiety, Asthma, Bronchitis, Depression, Diabetes-Type II, Hypertension, MRSA Past Surgical History: , Other Additional Past Surgical Histo: Ada teeth,LABIAL ABSCESS,MULTIPLE ABSCESSES Alcohol Use: None Drug Use: None Adult General Chief Complaint Chief Complaint: TOE PROBLEM HPI HPI Patient is a 32 year old female with a history of diabetes type 2, hypertension, depression, smoking, who presents to the ED today complaining of left great toe injury. Patient states a week ago she stubbed her left great toe on something. She states she used to on the top of the toe that opened up and drained. She states she is taking antibiotics from a previous prescription. She rates her pain is mild, described as throbbing. Denies any fever. Pain exacerbated by pressure on the area. Review of Systems Review of Systems Constitutional: Denies fever or chills [] Musculoskeletal: Reports left great toe pain/injury Integument: Denies rash or skin lesions [] Neurologic: Denies headache, focal weakness or sensory changes [] Endocrine: Denies polyuria or polydipsia [] All other systems were reviewed and found to be within normal limits, except as documented in this note. Allergies Allergies Allergies Coded Allergies Type Severity Reaction Last Updated Verified No Known Drug Allergies 05/09/15 No Physical Exam Physical Exam Constitutional: Well developed, well nourished, no acute distress, non-toxic a ppearance. [] Skin: See extremity Back: No tenderness, no CVA tenderness. [] Extremities: Patient is missing second through third toes-from a previous amputation. The scabbed over blister on the left great toe ventral aspect mid phalanx. Distally states approximately 1 x 0.3 cm with no drainage. There is tenderness over the toe diffusely. Limited range of motion to the toe due to pain. +2 left pedal pulse. Cap refill less than 2 seconds and left great toe. Neurologic: Alert and oriented X 3, normal motor function, normal sensory function, no focal deficits noted. [] Psychologic: Affect normal, judgement normal, mood normal. 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 This is chronic in appearance. No acute fracture or dislocation is identified. Atherosclerotic vascular disease is noted. IMPRESSION: 1. No evidence of acute osseous abnormality is identified 2. Postoperative changes as described. Electronically signed by: Rod Leon MD (09/11/2018 4:14 PM) [facility] DICTATED and SIGNED BY: ROD LEON MD DATE: 09/11/18 1614 Course & Med Decision Making Course & Med Decision Making Pertinent Labs and Imaging studies reviewed. (See chart for details) This is a 32-year-old female patient presented to the ED today with left great toe injury, patient stubbed her toe 1 week ago. She has a blister over the toe that opened up. The area does not appear infected though she has history of diabetes type 2 and is currently taking antibiotics from a previous prescription. Tetanus up-to-date. Left great toe x-ray interpreted by radiologist were negative for any acute findings. Patient was discharged on Bactrim and cephalexin due to her history of diabetes type 2 and amputated toes on the same foot. Instructed to keep the areas clean and dry. Follow-up with primary care doctor in the course of this week. Dragon Disclaimer Dragon Disclaimer This electronic medical record was generated, in whole or in part, using a voice recognition dictation system. Departure Departure Impression: Primary Impression: Contusion of great toe of left foot Disposition: 01 HOME, SELF-CARE Condition: STABLE Referrals: LOU[facility] MONCADA (PCP) follow up in 1 week Patient Instructions: Contusion, Oldn-tg-Ooda Additional Instructions: You were evaluated in the emergency room for left great toe contusion. Take the prescribed antibiotics as ordered until completed. Please follow-up with your primary care doctor in the course of this week or next week. Scripts Sulfamethoxazole/Trimethoprim (BACTRIM DS TABLET) 1 Each Tablet 1 TAB PO BID, #20 TAB Prov: GREG EDGE APRN 09/11/18 Cephalexin (CEPHALEXIN) 500 Mg Capsule 1 CAP PO QID, #40 CAP Prov: MUTGREG SEARS APRN 09/11/18 Problem Qualifiers Primary Impression: Contusion of great toe of left foot Encounter type: initial encounter Damage to nail status: without damage Qualified Codes: S90.112A - Contusion of left great toe without damage to nail, initial encounter GREG EDGE APRN Sep 11, 2018 16:10
--- NOTE | 2018-09-11 16:16 | RAD ---
3 views right first toe 09/11/2018 3:56 PM Indication: Right first toe pain following trauma Comparison: None Findings: Amputation at the level of the second, third, and fourth metatarsals seen. This is chronic in appearance. No acute fracture or dislocation is identified. Atherosclerotic vascular disease is noted. IMPRESSION: 1. No evidence of acute osseous abnormality is identified 2. Postoperative changes as described. Electronically signed by: Rod Leon MD (09/11/2018 4:14 PM) [facility]
[2018-09-11] MEDS ORDERED: SULF1TAB24 PO (16:33)
[2018-09-11] MEDS ORDERED: CEPH500C PO (16:33)
== END 2018-09-11 16:38 | disposition home or self-care (01) ==
LOC: ER 15:31
DX: S90.112A Contusion of left great toe without damage to nail, initial encounter (principal); E11.9 Type 2 diabetes mellitus without complications; I10 Essential (primary) hypertension; J45.909 Unspecified asthma, uncomplicated; F17.200 Nicotine dependence, unspecified, uncomplicated; Z89.432 Acquired absence of left foot; W22.8XXA Striking against or struck by other objects, initial encounter; Y93.89 Activity, other specified; Y92.89 Other specified places as the place of occurrence of the external cause; Y99.8 Other external cause status
CPT/HCPCS: 73660; 99284